=== PATIENT | male | born 1940 | race Caucasian/White ===

== ENCOUNTER 2023-08-18 16:39 | Inpatient (IN) | payer OTHER, MEDICARE ==
[~2023-08-18] VITALS: Ht 182.9 cm; Wt 75.7 kg
[~2023-08-18 16:39] MED LIST: BACTRIM DS TAB1 EACH PO; FLOMAX0.4 MG PO
[2023-08-18] MEDS ORDERED: SODIUM CHLORIDE 0.9% 1,000 ML IV ONE (19:45)
[2023-08-18] MEDS ORDERED: MORPHINE SULFATE 4 MG/ML VIAL IV ONE (19:45)
[2023-08-18] MEDS ORDERED: ondansetron HCL 4 MG/2 ML VIAL IV ONE (19:45)
[2023-08-18 20:14] LABS: HEMOGLOBIN 10.9 g/dL (12.0-18.0)
[2023-08-18 20:17] LABS: HEMATOCRIT 35.1 % (35.0-50.0); MCH 30.9 (27-36); MCV 99.8 fl (81-99); PLATELET COUNT 193 K/uL (140-440); RBC 3.52 M/ul (4.3-5.7); RDW 15.2 (10.5-15.0)
[2023-08-18 20:20] LABS: ALBUMIN 2.9 g/dL (3.4-5.0); ALBUMIN/GLOBULIN RATIO 0.83 (1.1-2.4); BILIRUBIN, TOTAL 0.4 ng/dL (0.2-1.0); CALCIUM 8.2 mg/dL (8.5-10.1); CREATININE, SERUM 19.65 mg/dL (0.70-1.30); PROTEIN, TOTAL 6.4 g/dL (6.4-8.2)
[2023-08-18 20:25] LABS: BUN/CREATININE RATIO 8.85 (6.0-28.6)
[2023-08-18 20:29] LABS: LYMPHOCYTES, MANUAL DIFF 87; MONOCYTES, MANUAL DIFF 2; NEUTROPHILS, MANUAL DIFF 11
[2023-08-18] MEDS ORDERED: DEXTROSE 50% 50 ML SYR IV ONE ×2 (20:30→23:30)
[2023-08-18] MEDS ORDERED: Calcium Gluconate in NS 1,000 MG/50 ML BAG IV ONE (20:30)
[2023-08-18] MEDS ORDERED: SODIUM POLYSTYRENE SULFONATE 15 GM/60 ML UDC PO ONE (20:30)
[2023-08-18] MEDS ORDERED: SODIUM CHLORIDE 0.9% 1,000 ML IV PRN (20:30)
[2023-08-18] MEDS ORDERED: Insulin Regular, Human 100 UNIT/ML ML IV ONE (20:30)
[2023-08-18] MEDS ORDERED: ALBUTEROL SULFATE 0.083% 3 ML VIAL INH ONE (20:30)
[2023-08-18 20:42] LABS: BILIRUBIN, URINE NEGATIVE (negative); BLOOD/HGB, URINE SMALL (Negative); KETONE, URINE NEGATIVE (Negative); LEUK ESTERASE, URINE LARGE (negative); NITRITE, URINE NEGATIVE (negative)
[2023-08-18 20:47] LABS: EPITHELIAL CELLS, URINE SQUAMOUS 1+ /lpf (0-1+)
[2023-08-18 20:48] LABS: BACTERIA, URINE 4+ /hpf (negative); CASTS, URINE NONE SEEN \\lpf; CRYSTALS, URINE NONE SEEN (0-1+); REFLEX CULTURE, URINE Yes (No); WHITE BLOOD CELLS, URINE >50 /HPF (0-5)
[2023-08-18] MEDS ORDERED: CEFTRIAXONE/SODIUM CHLORIDE 2 GM/100 ML PIGGYBACK IV ONE (22:30)
[2023-08-18 22:56] LABS: HEMOGLOBIN 10.6 g/dL (12.0-18.0); MCHC 30.7 g/dl (30-36)
[2023-08-18 22:59] LABS: HEMATOCRIT 34.4 % (35.0-50.0); MCH 30.5 (27-36); MCV 99.4 fl (81-99); PLATELET COUNT 198 K/uL (140-440); RBC 3.46 M/ul (4.3-5.7); RDW 15.1 (10.5-15.0)
[2023-08-18] MEDS ORDERED: SODIUM CHLORIDE 0.9% 1,000 ML IV SCH ×2 (23:15→23:45)
[2023-08-18 23:16] LABS: ALBUMIN 2.8 g/dL (3.4-5.0); ALBUMIN/GLOBULIN RATIO 0.85 (1.1-2.4); ANION GAP 27.7 (7-21); BILIRUBIN, TOTAL 0.4 ng/dL (0.2-1.0); BUN/CREATININE RATIO 8.63 (6.0-28.6); CALCIUM 7.9 mg/dL (8.5-10.1); CREATININE, SERUM 17.26 mg/dL (0.70-1.30); POTASSIUM 5.7 mmol/L (3.5-5.1); PROTEIN, TOTAL 6.1 g/dL (6.4-8.2)
[2023-08-18 23:19] LABS: BANDS, MANUAL DIFF 1; LYMPHOCYTES, MANUAL DIFF 90; NEUTROPHILS, MANUAL DIFF 9
[2023-08-18] MEDS ORDERED: LIDOCAINE 2% VISCOUS 6 ML SYR TOP ONE (23:45)
[2023-08-18] MEDS ORDERED: ondansetron HCL 4 MG/2 ML VIAL IV PRN (23:45)
[2023-08-18] MEDS ORDERED: ACETAMINOPHEN 325 MG TAB PO PRN (23:45)
[2023-08-19] MEDS ORDERED: dilTIAZem HCL 25 MG/5 ML VIAL IV ONE (00:15)
--- NOTE | 2023-08-19 00:30 | NUR ---
PATIENT TO THE FLOOR BY CLINICAL TRIAL HEAD. PATIENT TRANSFERRED FROM STRETCHER TO BED INDEPENDENTLY. IV FLUSHED WNL. VS OBTAINED AND RECORDED. ASSESSMENT COMPLETE. PATIENT REPORTS 4/10 ABD PAIN, PRN PAIN MEDICATION ADMINISTERED. IV FLUID INFUSING PER ORDER. WARM BLANKETS PROVIDED. ICE WATER PROVIDED. TELE IN PLACE. PATIENT DENIES FURTHER NEEDS. CALL LIGHT IN REACH.
[2023-08-19 00:46] VITALS: BP 109/57
[2023-08-19 02:15] LABS: MCHC 31.4 g/dl (30-36)
[2023-08-19 02:18] LABS: HEMATOCRIT 31.3 % (35.0-50.0); HEMOGLOBIN 9.8 g/dL (12.0-18.0); MCH 31.2 (27-36); MCV 99.2 fl (81-99); PLATELET COUNT 179 K/uL (140-440); RBC 3.16 M/ul (4.3-5.7)
[2023-08-19 02:21] LABS: ALBUMIN 2.5 g/dL (3.4-5.0); ALBUMIN/GLOBULIN RATIO 0.76 (1.1-2.4); ANION GAP 24.7 (7-21); BILIRUBIN, TOTAL 0.3 ng/dL (0.2-1.0); BUN/CREATININE RATIO 9.82 (6.0-28.6); CALCIUM 7.5 mg/dL (8.5-10.1); CREATININE, SERUM 13.54 mg/dL (0.70-1.30); POTASSIUM 5.7 mmol/L (3.5-5.1); PROTEIN, TOTAL 5.8 g/dL (6.4-8.2)
--- NOTE | 2023-08-19 02:22 | NUR ---
DEYA FROM LAB CALLED TO REPORT CRITICAL LAB VALUE, WBC OF 105.
[2023-08-19 02:24] LABS: BASOPHILS, MANUAL DIFF 1; LYMPHOCYTES, MANUAL DIFF 91; MONOCYTES, MANUAL DIFF 2; NEUTROPHILS, MANUAL DIFF 6
--- NOTE | 2023-08-19 02:57 | NUR ---
PATIENT RESTING IN BED WITH EYES CLOSED. RESPIRATIONS EVEN AND UNLABORED. CALL LIGHT IN REACH.
--- NOTE | 2023-08-19 03:42 | NUR ---
CALL LIGHT ANSWERED. PATIENT REPORTS NEEDING TO HAVE A BM. PATIENT UP TO BSC WITH SBA TO HAVE LIQUID, BROWN BM. PATIENT BACK TO BED WITH BRIEF PLACED AFTER WILLIAM CARE PROVIDED. FRESH ICE WATER PROVIDED. NEW BAG IV FLUID INFUSING PER ORDER. PATIENT HAS NO FURTHER NEEDS. CALL LIGHT IN REACH.
[2023-08-19 06:11] VITALS: BP 90/72
[2023-08-19 06:15] LABS: ALBUMIN 2.4 g/dL (3.4-5.0); ALBUMIN/GLOBULIN RATIO 0.8 (1.1-2.4); ANION GAP 20.2 (7-21); BILIRUBIN, TOTAL 0.3 ng/dL (0.2-1.0); BUN/CREATININE RATIO 11.04 (6.0-28.6); CALCIUM 7.3 mg/dL (8.5-10.1); CREATININE, SERUM 10.14 mg/dL (0.70-1.30); POTASSIUM 5.2 mmol/L (3.5-5.1); PROTEIN, TOTAL 5.4 g/dL (6.4-8.2)
--- NOTE | 2023-08-19 06:21 | NUR ---
PICKLE WATER PUMP OPERATOR ENTERED ROOM AND OBTAINED VITALS. BUSTOS BAG EMPTIED AND I&O DOCUMENTED. PT STATES NO FURTHER NEEDS AT THIS TIME. CALL LIGHT PLACED WTIHIN REACH.
--- NOTE | 2023-08-19 07:31 | NUR ---
RECIEVED SHIFT REPORT. PT IS RESTING IN BED, EYES CLOSED. BREATHING EVEN AND UNLABORED. CALL LIGHT IN REACH
[2023-08-19] MEDS ORDERED: LACTATED RINGER'S 1,000 ML IV SCH ×2 (08:00→23:15)
--- NOTE | 2023-08-19 08:04 | NUR ---
MORNING ASSESSMENT COMPLETE. PT LAYING IN BED AWAKE. DENIES PAIN OR NEEDS. TELE REMAINS IN PLACE. SWITCHED NS TO LR 200ML/HR. PT EDUCATED. CALL LIGHT IN REACH
--- NOTE | 2023-08-19 08:11 | NUR ---
PATIENT IN BED AT THIS TIME. CALL LIGHT WITHIN REACH, NO FURTHER NEEDS AT THIS TIME.
[2023-08-19] MEDS ORDERED: ondansetron HCL 4 MG/2 ML VIAL IV PRN (09:30)
[2023-08-19] MEDS ORDERED: ACETAMINOPHEN 325 MG TAB PO PRN (09:30)
[2023-08-19 09:43] VITALS: BP 115/58
--- NOTE | 2023-08-19 10:03 | NUR ---
PATIENT IN BED AT THIS TIME. VITALS AND I&O'S CHARTED. CALL LIGHT WITHIN REACH, NO FURTHER NEEDS AT THIS TIME.
[2023-08-19 10:14] LABS: ANION GAP 22.2 (7-21); BUN/CREATININE RATIO 13.11 (6.0-28.6); CALCIUM 7.4 mg/dL (8.5-10.1); CREATININE, SERUM 6.94 mg/dL (0.70-1.30); POTASSIUM 4.2 mmol/L (3.5-5.1)
--- NOTE | 2023-08-19 11:05 | NUR ---
MED REC COMPLETE
[2023-08-19] MEDS ORDERED: DEXTROSE 5% 1,000 ML IV SCH (11:30)
--- NOTE | 2023-08-19 11:34 | NUR ---
PATIENT IN BED AT THIS TIIME. CALL LIGHT WITHIN REACH, NO FURTHER NEEDS AT THIS TIME.
[2023-08-19] MEDS ORDERED: PHARMACY RENAL DOSE ADJUSTMENT 1 DOSE MISC PO SCH (12:00)
--- NOTE | 2023-08-19 12:22 | NUR ---
DID HRLY ROUNDING ON PT ASKED IF HE NEEDED ANYTHING ELSE FOR HIS LUNCH, PT WANTED ME TO HELP HIM BRING THE TABLE CLOSER AND TO SIT HIM UP. PT DIDNT NEED ANYTHING ELSE FROM ME AND CALL LIGHT IS WITHIN REACH.
--- NOTE | 2023-08-19 13:00 | NUR ---
Met with Yusuf. He states he lives in a house with 13 steps. He uses a walker and does not currently have issues getting in or out of his home. He is a and thinks he has been seen at the [facility]. He does not have pcp, but [facility]. He has recently driven, but states his family are requesting he not drive. His brother Scotty and MAT De Los Santos live in town and will drive him. Pt states his kidneys are bad, but has declined dialysis. We discussed he wishes and then completed a POSLT form. Pt request DNR/DNI with limitied treatment. He states he discussed this with Dr. Sanford earlier. Let him know I will give the form to Dr. Sanford to review with him. Called enrollment at the [facility] to check if pt is enrolled and received a recording they are not available today. Left a message with name, , and pts home phone (he does not have a cell) requesting they call and assist him with enrollment. I then called Elva Stephens MSW at the [facility]. She is unable to find this pt in the system. Pt states he had a hearing test and other testing 2 years ago. Let Elva know, this pt is in need of a pcp. Pt will need to enroll. Discussed he will need cg service and possibly Home Based Care in the future.
[2023-08-19 13:24] VITALS: BP 119/64
--- NOTE | 2023-08-19 14:09 | NUR ---
ATTEMPTED TO VISIT DURING SPIRITUAL CARE ROUNDS. PT GONE FROM ROOM. PROVIDED PRAYER.
[2023-08-19 14:21] LABS: ANION GAP 20.8 (7-21); BUN/CREATININE RATIO 14.45 (6.0-28.6); CALCIUM 7.4 mg/dL (8.5-10.1); CREATININE, SERUM 5.05 mg/dL (0.70-1.30); POTASSIUM 4.8 mmol/L (3.5-5.1)
--- NOTE | 2023-08-19 14:37 | NUR ---
REPORT RECEIVED FROM JUSTIN RN, ALL QUESTIONS ANSWERED. PT AWAKE IN BED, CALL LIGHT IN REACH.
[2023-08-19] MEDS ORDERED: HEPARIN SOD,PORK IN 0.45% NACL 500 ML IV SCH (16:15)
[2023-08-19] MEDS ORDERED: HEParin SOD (PORCINE) 5,000 UNIT/ML SYR IV PRN ×3 (16:15)
[2023-08-19] MEDS ORDERED: HEParin SOD (PORCINE) 5,000 UNIT/ML SYR IV ONE (16:15)
--- NOTE | 2023-08-19 16:21 | NUR ---
NOtified by Dr. Sanford pt has a very large DVT.
[2023-08-19 16:28] LABS: BASOPHILS 0.2 % (0-2); EOSINOPHILS 0.3 % (0-6); HEMATOCRIT 32.3 % (35.0-50.0); HEMOGLOBIN 10.1 g/dL (12.0-18.0); LYMPHOCYTES 84.4 % (24-44); MCH 30.7 (27-36); MCHC 31.3 g/dl (30-36); MONOCYTES 2.8 % (0-12); NEUTROPHILS 12.3 % (39-80); PLATELET COUNT 195 K/uL (140-440); RBC 3.29 M/ul (4.3-5.7); RDW 15.1 (10.5-15.0)
[2023-08-19 16:37] LABS: INR 1.5 (0.80-1.30); PROTIME 17.3 Sec (11.2-14.2)
[2023-08-19 18:29] VITALS: BP 116/78
--- NOTE | 2023-08-19 19:46 | NUR ---
REPORT RECIEVED FROM DAY SHIFT RN. PATIENT RESTING IN BED, DENIES CURRENT NEEDS. CALL LIGHT IN REACH.
--- NOTE | 2023-08-19 20:34 | NUR ---
iv pump alarming, new bag iv fluids hung and infusing as directed, wnl. second iv site continues to infuse heparin per protocol, site also wnl. infusing at 18 units/kg/hr-rate unchanged from start of shift. call light in reach, pt denies additional needs or concerns.
[2023-08-19 20:35] VITALS: BP 126/74
--- NOTE | 2023-08-19 20:44 | NUR ---
CENTRAL SUPPLY ASSISTANT ENTERED ROOM AND OBTAINED VITALS. BUSTOS BAG EMPTIED AND I&O DOCUMENTED. CENTRAL SUPPLY ASSISTANT REFILLED PT ICE WATER REQUESTED BY PT. PT STATES NO FURTHER NEEDS AT THIS TIME. CALL LIGHT WITHIN REACH.
[2023-08-19] MEDS ORDERED: CEFTRIAXONE/SODIUM CHLORIDE 2 GM/100 ML PIGGYBACK IV SCH (21:00)
[2023-08-19] MEDS ORDERED: NOREPINEPHRINE BITARTRATE 250 ML IV SCH (21:00)
[2023-08-19] MEDS ORDERED: MELATONIN 3 MG TAB PO PRN (21:00)
--- NOTE | 2023-08-19 21:15 | NUR ---
PATIENT RESTING IN BED. ASSESSMENT COMPLETE. RLE RED TO TOUCH, 2+ EDEMA, BUT PAINLESS. PATIENT DENIES THE NEED FOR PAIN MEDICATION AT THIS TIME. BOTH IVs FLUSH WNL. NEW BAG IV ABX INFUSING PER ORDER. PATIENT RE-EDUCATED ABOUT NOT AMBULATING AT THIS TIME. PATIENT VERBALIZES UNDESTANDING. BED ALARM ON FOR SAFETY. CATHETER CARE PROVIDED PER PROTOCOL. PATIENT HAS NO FURTHER NEEDS. CALL LIGHT IN REACH.
[2023-08-19 22:16] LABS: ANION GAP 18.9 (7-21); BUN/CREATININE RATIO 17.71 (6.0-28.6); CALCIUM 7.1 mg/dL (8.5-10.1); CREATININE, SERUM 2.71 mg/dL (0.70-1.30); POTASSIUM 4.9 mmol/L (3.5-5.1)
--- NOTE | 2023-08-19 22:39 | NUR ---
PATIENT RESTING IN BED WATCHING TV. PATIENT DENIES NEEDS AT THIS TIME AND STATES "I AM NOT GONNA GO TO BED CAUSE I WILL BE WOKE UP WITH ANOTHER PIN PRICK HERE PRETTY SOON". CALL LIGHT IN REACH.
--- NOTE | 2023-08-19 23:46 | NUR ---
NEW ORDERS PLACED BY . NEW BAG IV FLUID INFUSING PER ORDER. NO FURTHER NEEDS. CALL LIGHT IN REACH.
--- NOTE | 2023-08-19 23:57 | EKG ---
[facility] [address] [place] [address] Signed Normal sinus rhythm Left axis deviation Abnormal ECG When compared with ECG of 20-MAY-2022 16:45, premature atrial complexes are no longer present T wave amplitude has increased in Lateral leads Confirmed by Mark Wilson MD () on 08/19/2023 11:57:44 PM Electronically Signed By: MARK WILSON MD 08/19/23 2357 PATIENT NAME: DAVID WEISS Electrocardiogram DATE OF : 36 PHYSICIAN: MARK WILSON MD REPORT #: [id number] REPORT IS CONFIDENTIAL AND NOT TO BE RELEASED WITHOUT AUTHORIZATION
--- NOTE | 2023-08-19 23:59 | EKG ---
[facility] [address] [facility] [place] [address] Signed Sinus tachycardia with premature atrial complexes Left axis deviation Abnormal ECG When compared with ECG of 18-AUG-2023 21:03, premature atrial complexes are now present Confirmed by Mark Wilson MD () on 08/19/2023 11:59:19 PM Electronically Signed By: MARK WILSON MD 08/19/23 2359 PATIENT NAME: DAVID WEISS Electrocardiogram DATE OF : 36 PHYSICIAN: MARK WILSON MD REPORT #: [id number] REPORT IS CONFIDENTIAL AND NOT TO BE RELEASED WITHOUT AUTHORIZATION
[2023-08-20] VITALS (7 sets, daily range): BP systolic 96–140; BP diastolic 54–81
--- NOTE | 2023-08-20 | NUR ---
PTT RESULT 129.4, PER HEPARIN FLOW SHEET, HEPARIN INFUSION STOPPED FOR 30 MINUTES AT THIS TIME. DOUBLE VERIFIED WITH AZUL DEL CID. DOUBLE VERIFIED WITH LAB THAT PTT WAS DRAWN IN HAND OPPOSITE OF HEPARIN INFUSION SITE.
--- NOTE | 2023-08-20 00:30 | NUR ---
HEPARIN DRIP RESUMED PER HEPARIN FLOWSHEET PROTOCOL. PUMP RATE SET AT 16 UNITS/KG/HR. VERIFIED BY SECOND RN AZUL. PATIENT DENIES FURTHER NEEDS AT THIS TIME. CALL LIGHT IN REACH.
--- NOTE | 2023-08-20 01:03 | NUR ---
CONSULTING SENIOR PRACTICE DIRECTOR ENTERED ROOM AND OBTAINED VITALS AND I&O. BUSTOS BAG EMPTIED. PT STATES NO FURTHER NEEDS AT THIS TIME. CALL LIGHT WITHIN REACH.
--- NOTE | 2023-08-20 01:54 | NUR ---
ccu rn yannick called regarding hr, per tele hr very briefly up to 150, then immediately returned to baseline, now 90's. PT resting in bed, awake and watching tv, no distress noted. pt denies chest pain, sob, palpitations, ect. no needs or concerns verbalized, call light in reach. vs collected and stable, primary rn aware. will continue to monitor.
--- NOTE | 2023-08-20 01:55 | NUR ---
MANTEL CRAFTSMAN ENTERED ROOM AND OBTAINED A SET OF VITALS AT RN REQUEST. RN NOTIFED OF VITALS. PT STATES NO NEEDS AT THIS TIME. CALL LIGHT WITHIN REACH.
--- NOTE | 2023-08-20 03:54 | NUR ---
PATIENT RESTING IN BED WITH EYES CLOSED. RESPIRATIONS EVEN AND UNLABORED. CALL LIGHT IN REACH.
[2023-08-20 04:12] LABS: PLATELET COUNT 197 K/uL (140-440); RBC 3.22 M/ul (4.3-5.7)
[2023-08-20 04:16] LABS: HEMATOCRIT 31.5 % (35.0-50.0); MCH 30.9 (27-36); MCHC 31.6 g/dl (30-36); RDW 15.5 (10.5-15.0)
--- NOTE | 2023-08-20 04:21 | NUR ---
CALL RECIEVED FROM DEYA IN LAB OF WBC OF 115.6.
[2023-08-20 04:23] LABS: ANION GAP 19.1 (7-21); BUN/CREATININE RATIO 18.53 (6.0-28.6); CALCIUM 7.2 mg/dL (8.5-10.1); CREATININE, SERUM 1.78 mg/dL (0.70-1.30); LYMPHOCYTES, MANUAL DIFF 88; MAGNESIUM 1.1 mg/dL (1.8-2.4); MONOCYTES, MANUAL DIFF 1; NEUTROPHILS, MANUAL DIFF 11; PHOSPHORUS, INORGANIC 2.3 mg/dL (2.5-4.9); POTASSIUM 4.1 mmol/L (3.5-5.1)
--- NOTE | 2023-08-20 04:50 | NUR ---
PATIENT RESTING IN BED. ASSESSMENT COMPLETE. RLE 2+ EDEMA, NO REDNESS OR PAIN NOTED. PULSES PRESENT IN BLE. PATIENT REPORTS FEELING UNCOMFORTABLE, PRN PAIN MEDICATION ADMINISTERED. GENERLIZED PAIN, ABD DISCOMFORT NOTED. FRESH WATER PROVIDED. PATIENT HAS NO FURTHER NEEDS. CALL LIGHT IN REACH.
--- NOTE | 2023-08-20 04:56 | NUR ---
CALL LIGHT ANSWERED. PT REQUESTED ICE WATER. ATTENDING PSYCHIATRIST BROUGHT WATER AND OBTAINED VITALS AND I&O. BUSTOS BAG EMPTIED. PT STATES NO FURTHER NEEDS AT THIS TIME. CALL LIGHT WITHIN REACH.
--- NOTE | 2023-08-20 05:45 | NUR ---
TELEPHONE CALL PLACED TO REGARDING [address] [facility] LAB RESULTS. NEW ORDER PLACED. ORDER VERIFIED USING REPEAT BACK METHOD.
[2023-08-20] MEDS ORDERED: MAGNESIUM SULFATE 4 GM/100 ML BAG IV ONE (06:00)
--- NOTE | 2023-08-20 06:22 | NUR ---
PATIENT RESTING IN BED. NEW BAG IV MEDICATION INFUSING PER ORDER, SEE MAR. PATIENT HAS NO FURTHER NEEDS. CALL LIGHT IN REACH.
--- NOTE | 2023-08-20 06:54 | NUR ---
PTT RESULT OF 68.8 WITHIN THERAPUTIC RANGE FOR HEPARIN FLOW SHEET. NO CHANGE TO DOSE. REMAINS AT 16 UNITS/KG/HOUR. NEXT PTT ORDERED FOR 1300.
--- NOTE | 2023-08-20 07:46 | NUR ---
Patient awake, alert and oriented x4. Patient denies pain at this time. Heparin drip infusing at 16units/kg/hr. Right leg has generalized swelling, pulse intact, pt denies pain. Iv site is patent at this time. Patient denies needs, bed alarm intact.
--- NOTE | 2023-08-20 08:21 | NUR ---
UR CLINICAL REVIEW: NEGRA MARIO INPT 08/18/23 @ 2344 MATCHES STATUS MEETS INPT CRITERIA CLINICALS SENT FOR AUTH PLAN FOR SNF AT [facility] NEXT REVIEW 08/23/23
[2023-08-20 10:24] LABS: ANION GAP 16.9 (7-21); BUN/CREATININE RATIO 16.32 (6.0-28.6); CALCIUM 7.2 mg/dL (8.5-10.1); CREATININE, SERUM 1.47 mg/dL (0.70-1.30); POTASSIUM 3.9 mmol/L (3.5-5.1)
--- NOTE | 2023-08-20 11:23 | NUR ---
med rec complete.
--- NOTE | 2023-08-20 12:45 | NUR ---
hourly rounding-Pt awake in bed watching tv, a&ox4. Patient denies pain. Patient denies needs at this time, call light within reach.
[2023-08-20] MEDS ORDERED: POTASSIUM PHOSPHATE 20 MMOL in DEXTROSE 5% 500 ML IV ONE (13:30)
--- NOTE | 2023-08-20 17:05 | NUR ---
Patient awake in bed, alert and oriented x4. Heparin infusing at 16units/kg/hr-unchanged. Patient denies pain at this time. Fresh water provided to patient. Patient denies needs, personal supplies and call light within reach.
--- NOTE | 2023-08-20 19:28 | NUR ---
REPORT RECIEVED FROM DAY SHIFT RN. PATIENT RESTING IN BED WITH VISITORS IN THE ROOM. PATIENT HAS NO CURRENT NEEDS. HEPARIN DRIP INFUSING AT 16 UNITS/KG/HR. DOUBLE VERIFIED BY SECOND RN MAGNUS. CALL LIGHT IN REACH.
[2023-08-20 20:12] LABS: ANION GAP 15.6 (7-21); BUN/CREATININE RATIO 15.17 (6.0-28.6); CALCIUM 7.3 mg/dL (8.5-10.1); CREATININE, SERUM 1.12 mg/dL (0.70-1.30); POTASSIUM 4.6 mmol/L (3.5-5.1)
--- NOTE | 2023-08-20 20:30 | NUR ---
PATIENT RESTING IN BED. NEW BAG IV ABX INFUSING PER ORDER. NEW BAG IV FLUID INFSUING PER ORDER. BOTH IVs FLUSH WNL. FRESH ICE PROVIDED. PATIENT HAS NO FURTHER NEEDS. CALL LIGHT IN REACH.
--- NOTE | 2023-08-20 20:42 | NUR ---
ENVIRONMENTAL SERVICES COORDINATOR ENTERED ROOM AND OBTAINED VITALS AND I&O. BUSTOS BAG EMTPIED AND DINNER TRAY REMOVED FROM ROOM AND PT REQUEST. PT STATES NO FURTHER NEEDS AT THIS TIME. CALL LIGHT WITHIN REACH.
--- NOTE | 2023-08-20 21:31 | NUR ---
CATHETER CARE PROVIDED PER PROTOCOL. WILLIAM AREA RED, BUT PATIENT DENIES PAIN. BARRIER CREAM APPLIED. ASSESSMENT COMPLETE. PATIENT RLE HAS 1+ EDEMA WITH STRONG PULSE PRESENT. PATIENT DENIES PAIN. PATIENT HAS NO FURTHER NEEDS AT THIS TIME. CALL LIGHT IN REACH. BED ALARM ON FOR SAFETY.
--- NOTE | 2023-08-20 23:17 | NUR ---
PATIENT RESTING IN BED WITH EYES CLOSED. RESPIRATIONS EVEN AND UNLABORED. CALL LIGHT IN REACH.
[2023-08-21] VITALS (7 sets, daily range): BP systolic 100–140; BP diastolic 50–98
--- NOTE | 2023-08-21 00:39 | NUR ---
PATIENT RESTING IN BED WITH EYES CLOSED. RESPIRATIONS EVEN AND UNLABORED. CALL LIGHT IN REACH.
--- NOTE | 2023-08-21 01:59 | NUR ---
PATIENT RESTING IN BED WITH EYES CLOSED. AWAKENS EASILY. VS AND I&Os OBTAINED AND RECORDED. PATIENT DENIES NEEDS AT THIS TIME. CALL LIGHT IN REACH.
--- NOTE | 2023-08-21 03:45 | NUR ---
CALL LIGHT ANSWERED. PATIENT REQUESTING ICE. FRESH ICE PROVIDED. PATIENT HAS NO FURTHER NEEDS. CALL LIGHT IN REACH.
--- NOTE | 2023-08-21 04:56 | NUR ---
CALL LIGHT ANSWERED. IV PUMP ALARMING. VS AND I&Os OBTAINED AND RECORDED. NEW BAG IV FLUID INFUSING PER ORDER. ASSESSMENT COMPLETE. PATIENT DENIES PAIN. PULSES PRESENT IN BLE. 1+ EDEMA IN RLE. PATIENT STATES "I THINK IT IS LOOKING BETTER". FRESH WATER PROVIDED. PATIENT HAS NO FURTHER NEEDS. CALL LIGHT IN REACH.
[2023-08-21 05:28] LABS: HEMOGLOBIN 10.4 g/dL (12.0-18.0)
[2023-08-21 05:33] LABS: HEMATOCRIT 32.9 % (35.0-50.0); MCH 31.2 (27-36); MCHC 31.6 g/dl (30-36); MCV 98.6 fl (81-99); PLATELET COUNT 241 K/uL (140-440); RBC 3.34 M/ul (4.3-5.7); RDW 15.7 (10.5-15.0)
[2023-08-21 05:47] LABS: ALBUMIN 2.4 g/dL (3.4-5.0); ALBUMIN/GLOBULIN RATIO 0.73 (1.1-2.4); ANION GAP 16.4 (7-21); BILIRUBIN, TOTAL 0.4 ng/dL (0.2-1.0); BUN/CREATININE RATIO 13.51 (6.0-28.6); CALCIUM 7.2 mg/dL (8.5-10.1); CREATININE, SERUM 1.11 mg/dL (0.70-1.30); MAGNESIUM 1.5 mg/dL (1.8-2.4); PHOSPHORUS, INORGANIC 2.1 mg/dL (2.5-4.9); POTASSIUM 3.4 mmol/L (3.5-5.1); PROTEIN, TOTAL 5.7 g/dL (6.4-8.2)
[2023-08-21 05:54] LABS: LYMPHOCYTES, MANUAL DIFF 84; MONOCYTES, MANUAL DIFF 5; NEUTROPHILS, MANUAL DIFF 11
--- NOTE | 2023-08-21 06:20 | NUR ---
PTT LAB RESULT RECIEVED. PER HEPARIN PROTOCOL, 3,785 U BOLUS ADMINSITERED. DOUBLE VERIFIED BY SECOND NEHEMIAS Mckeon PER HEPARIN PROTOCOL CONTINUOUS HEPARIN INFUSION INCREASED 2 UNITS/KG/HR. HEPARING DRIP RATE NOW INFUSING 18 UNITS/KG/HOUR AND DOUBLE VERIFIED BY SECOND RN SOREN Mckeon 1230 PTT LAB ORDER PLACED PER PROTOCOL.
--- NOTE | 2023-08-21 07:15 | NUR ---
REPORT RECEIVED FROM ZAC DEL CID, ALL QUESTIONS ANSWERED. PT RESTING IN BED WITH EYES CLOSED, RESPIRATIONS EVEN AND UNLABORED. HEPARIN DRIP VERIFIED WITH ZAC DEL CID. CALL LIGHT IN REACH. BED ALARM ON.
[2023-08-21] MEDS ORDERED: MAGNESIUM SULFATE 4 GM/100 ML BAG IV ONE (07:45)
[2023-08-21] MEDS ORDERED: POTASSIUM PHOSPHATE 30 MMOL in DEXTROSE 5% 500 ML IV ONE (07:45)
--- NOTE | 2023-08-21 09:49 | NUR ---
CALL FROM CCU PT HEART RATE ELEVATED. PT WORKING WITH PHYSICAL THERAPY IN THERAPY ROOM, PT HEART RATE 134, PT BACK TO ROOM AND IN RECLINER, EKG ORDERED BY DR WILSON.
[2023-08-21] MEDS ORDERED: MAGNESIUM SULFATE 100 ML IV ONE (10:07)
--- NOTE | 2023-08-21 10:24 | NUR ---
ASSESSMENT COMPLETE. PT SITTING UP IN CHAIR, DENIES CHEST PAIN OR SOB, STATES WHEN HEART RATE WAS ELEVATED FELT LIGHT HEADED. DENIES AT THIS TIME. CLEAR LUNG SOUNDS. RLE 1+ EDEMA, DENIES PAIN AT THIS TIME. PT DENIES FURTHER NEEDS AT THIS TIME. CALL LIGHT IN REACH.
[2023-08-21] MEDS ORDERED: ENOXAPARIN SODIUM 80 MG/0.8 ML SYR SUB-Q SCH (10:35)
--- NOTE | 2023-08-21 12:25 | EKG ---
[facility] [address] [place] [address] Signed Sinus rhythm with premature supraventricular complexes Otherwise normal ECG When compared with ECG of 19-AUG-2023 00:10, No significant change was found with sinus arrhythmia Confirmed by Mark Wilson MD () on 08/21/2023 12:25:42 PM Electronically Signed By: MARK WILSON MD 08/21/23 1225 PATIENT NAME: DAVID WEISS Electrocardiogram DATE OF : 36 PHYSICIAN: MARK WILSON MD REPORT #: [id number] REPORT IS CONFIDENTIAL AND NOT TO BE RELEASED WITHOUT AUTHORIZATION
--- NOTE | 2023-08-21 12:32 | NUR ---
PT AWAKE IN CHAIR. DENIES NEEDS AT THIS TIME. CALL LIGHT IN REACH.
--- NOTE | 2023-08-21 13:04 | EKG ---
[facility] [address] [facility] [place] [address] Signed Sinus rhythm with premature supraventricular complexes and with occasional premature ventricular complexes Left axis deviation Abnormal ECG When compared with ECG of 19-AUG-2023 14:12, premature ventricular complexes are now present T wave amplitude has decreased in Lateral leads Confirmed by Mark Wilson MD () on 08/21/2023 1:04:09 PM Electronically Signed By: MARK WILSON MD 08/21/23 1304 PATIENT NAME: DAVID WEISS Electrocardiogram DATE OF : 36 PHYSICIAN: MARK WILSON MD REPORT #: [id number] REPORT IS CONFIDENTIAL AND NOT TO BE RELEASED WITHOUT AUTHORIZATION
--- NOTE | 2023-08-21 13:08 | NUR ---
PT RESTING COMFORTABLY IN CHAIR WITH CALL LIGHT WITHIN REACH.
--- NOTE | 2023-08-21 19:04 | NUR ---
CHARTING COMPLETED BY STUDENT NURSE TIFFANIE REVIEWED BY THIS RN.
--- NOTE | 2023-08-21 19:20 | NUR ---
REPORT RECEIVED FROM OFFGOING STUDENT RN, TIFFANIE. PT SITTING UP IN CHAIR WITH CHAIR ALARM ACTIVE. PT DENIES NEEDS. DINNER TRAY REMOVED FROM ROOM. CALL LIGHT IN REACH. ROOM IN VIEW OF RN STATION.
--- NOTE | 2023-08-21 21:50 | NUR ---
PT ASSESSMENT COMPLETE. PT SITTING UP IN CHAIR. STATES THAT HE IS READY TO GO TO BED. PT TO BED WITH 1PA, TOLERATED WELL. BED ALARM IN PLACE. PT DENIES PAIN, NAUSEA, OR SOB. TELE # 7, IRREGULAR HR, 70'S. BUSTOS CATH DRAINING CLEAR YELLOW URINE. VS OBTAINED. WNL. IV FLUSHED WITH 10 ML NS X 2. PATENT, WNL. PT DENIES FURTHER NEEDS AT THIS TIME. CALL LIGHT IN REACH.
--- NOTE | 2023-08-21 22:40 | NUR ---
SANITATION TRUCK CLEANER TO ROOM FOR IV PUMP ALARMING. PT RESTING IN BED WATCHING TV. DENIES NEEDS AT THIS TIME. BED ALARM ACTIVE. CALL LIGHT IN REACH. ROOM IN VIEW OF RN STATION WITH CURTAIN OPEN.
[2023-08-22] VITALS (7 sets, daily range): BP systolic 79–128; BP diastolic 58–83
--- NOTE | 2023-08-22 03:00 | NUR ---
PT ASSESSMENT COMPLETE. PT RESTING IN BED WITH EYES CLOSED, WAKES EASILY TO VOICE AND TOUCH. PT DENIES NAUSEA OR SOB. PT REPORTS SLIGHT ABD TENDERNESS TO PALPATION. RLE WITH 1+ EDEMA, PT DENIES TENDERNESS, CMS INTACT. BUSTOS CATH DRAINING CLEAR YELLOW URINE. VS OBTAINED, WNL. IVF INFUSING ORDERED. PT DENIES FURTHER NEEDS AT THIS TIME. CALL LIGHT IN REACH. BED ALARM ACTIVE. ROOM IN VIEW OF RN STATION.
--- NOTE | 2023-08-22 06:00 | NUR ---
UTILITY ARBORIST TO ROOM FOR AM VITALS. PT RESTING WITH EYES CLOSED. WAKES EASILY. VS OBTAINED. BUSTOS CATH EMPTIED. FRESH ICE CHIPS PROVIDED. PT DENIES FURTHER NEEDS. CALL LIGHT IN REACH. BED ALARM ACTIVE.
--- NOTE | 2023-08-22 07:12 | NUR ---
EKG COMPLETED PER ORDER.
[2023-08-22] MEDS ORDERED: METOPROLOL TARTRATE 5 MG/5 ML VIAL IV ONE (07:15)
--- NOTE | 2023-08-22 08:31 | NUR ---
PATIENT GIVEN SQ LOVENOX. PO METOPROLOL DOSE GIVEN IS 12.5MG. ONE LITER LR BOLUS NOW.
[2023-08-22] MEDS ORDERED: LACTATED RINGER'S 1,000 ML IV ONE ×2 (08:45→14:30)
[2023-08-22] MEDS ORDERED: METOPROLOL TARTRATE 25 MG TAB PO SCH ×2 (09:00)
[2023-08-22 09:35] LABS: MCH 30.7 (27-36)
[2023-08-22 09:38] LABS: HEMATOCRIT 32.4 % (35.0-50.0); MCHC 30.8 g/dl (30-36); MCV 99.7 fl (81-99); PLATELET COUNT 300 K/uL (140-440); RBC 3.25 M/ul (4.3-5.7); RDW 15.7 (10.5-15.0)
[2023-08-22 09:42] LABS: INR 1.26 (0.80-1.30)
[2023-08-22 09:43] LABS: ANION GAP 15.6 (7-21); BUN/CREATININE RATIO 11.53 (6.0-28.6); CALCIUM 7.1 mg/dL (8.5-10.1); CREATININE, SERUM 1.04 mg/dL (0.70-1.30); MAGNESIUM 1.6 mg/dL (1.8-2.4); POTASSIUM 3.6 mmol/L (3.5-5.1)
--- NOTE | 2023-08-22 09:50 | NUR ---
MORNING ASSESSMENT IS COMPLETE. PATIENT 1L LR BOLUS COMPLETE. VITALS/I&O COMPLETE. PATIENT IS RESTING IN BED, DENIES PAIN OR NAUSEA. PATIENT HAS GOOD APPETITE WITH BREAKFAST. METOPROLOL 12.5MG BID STARTED AT 0900 THIS AM AND PULSE REMAINS IN THE 70'S AFTER BOLUS. PATIENT WILL HAVE PHISICAL THERAPY THIS MORNING AND OROSTATIC VITALS WITH THIS. NO OTHER NEEDS AT THIS TIME.
[2023-08-22 10:11] LABS: NEUTROPHILS, MANUAL DIFF 13
[2023-08-22 10:13] LABS: LYMPHOCYTES, MANUAL DIFF 83; MONOCYTES, MANUAL DIFF 4
--- NOTE | 2023-08-22 11:03 | NUR ---
ORTHOSTATIC VITALS DONE BEFORE WORKING WITH PHYSICAL THERAPY, PATIENT HAD SIGNIFICANT JUMP OF BP WITH STANDING, DENIED DIZZINESS, AMBULATED TO PHYSICAL THERAPY ROOM WITH SBA AND FWW. PATIENT WAS ABLE TO DO STAIRS. LINENS CHANGED, PATIENT IS UP TO CHAIR.
[2023-08-22] MEDS ORDERED: MAGNESIUM SULFATE 4 GM/100 ML BAG IV ONE (12:30)
[2023-08-22] MEDS ORDERED: TAMSULOSIN HCL 0.4 MG CAP PO SCH (12:36)
--- NOTE | 2023-08-22 12:49 | NUR ---
PATIENT HAS MG RIDER INFUSING. PATIENT IS HAVING A REPEAT EKG AFTER CONVERTING TO NSR. PATIENT MOVED BACK TO BED WITH 1PA AND FWW FOR AFTERNOON NAP.
--- NOTE | 2023-08-22 14:13 | NUR ---
PATIENT IS SLEEPING IN BED, REGULAR RESPIRATIONS.
--- NOTE | 2023-08-22 14:22 | NUR ---
PATIENT'S BP IN THE 80'S SYSTOLIC. RE-CYCLED FOR [address] NOTIFIED BY NEHEMIAS MARTIN AND FLUID BOLUS ORDERED.
--- NOTE | 2023-08-22 16:06 | NUR ---
PATIENT IS FINISHED WITH SECOND LR BOLUS. PATIENT UP WITH MINIMAL ASSIST AND FWW TO BATHROOM. PATIENT DENIES DIZZINESS.
--- NOTE | 2023-08-22 17:44 | NUR ---
PATIENT ATE 80% OF DINNER. I&O COMPLETE, VITALS DONE.
--- NOTE | 2023-08-22 20:42 | NUR ---
PT ASSESSMENT COMPLETE. PT RESTING IN BED WATCHING TV. PT DENIES PAIN, NAUSEA, OR SOB. PT STATES THAT ABD TENDERNESS IMPROVED AFTER HAVING A BOWEL MOVEMENT EARLIER IN THE DAY. TELE # [address], SR, HR IN 70'S. BUSTOS CATH DRAINING CLEAR YELLOW URINE. RLE WITH 1 + EDEMA. PT DENIES TENDERNESS. CMS INTACT. IV X 2 FLUSHED WITH 5 ML NS. WNL, PATENT. VS OBTAINED. WNL. PT DENIES FURTHER NEEDS AT THIS TIME. CALL LIGHT IN REACH. BED ALARM ACTIVE.
[2023-08-22] MEDS ORDERED: APIXABAN 5 MG TAB PO SCH (21:00)
--- NOTE | 2023-08-22 22:18 | NUR ---
PT ROUNDING. PT RESTING IN BED WITH EYES CLOSED. RESPIRATIONS EVEN AND UNLABORED. CALL LIGHT IN REACH. BED ALARM ACTIVE.
--- NOTE | 2023-08-23 01:13 | NUR ---
PT ROUNDING. PT RESTING IN BED WITH EYES CLOSED. RESPIRATIONS EVEN AND UNLABORED. CALL LIGHT IN REACH. BED ALARM ACTIVE.
[2023-08-23 02:33] VITALS: BP 104/66
--- NOTE | 2023-08-23 02:34 | NUR ---
RESTING, EYES CLOSED, NO C/O DISTRESS, IVF INFUSING RA. F/C PATENT. TELE#[address] SR WITH FREQUENT SVPB'S, DENIES CP. COOPERATIVE WITH VITALS AND SECOND ASSESSMENT
[2023-08-23 02:36] VITALS: BP 104/66
--- NOTE | 2023-08-23 04:30 | NUR ---
REPORT RECEIVED FROM ANDRIY DEL CID. PT RESTING IN BED, EYES CLOSED. RR EVEN, UNLABORED. CALL LIGHT IN REACH.
[2023-08-23 05:09] VITALS: BP 107/57
--- NOTE | 2023-08-23 05:14 | NUR ---
IV PUMP ALARMING, NEW BAG OF IV FLUIDS PROVIDED. VS AND I & O COMPLETED. IV WNL, CDI. AKASH WNL. PT STATES NO OTHER NEEDS AT THIS TIME. CALL LIGHT IN REACH.
--- NOTE | 2023-08-23 06:30 | NUR ---
PT RESTING IN BED, EYES CLOSED. RR EVEN, UNLABORED. CALL LIGHT IN REACH.
--- NOTE | 2023-08-23 07:00 | NUR ---
REPORT REVCEIVED FROM DRY LUMBER GRADER NEHEMIAS DOTY. PATIENT IS LYING ON THEIR LEFT SIDE WITH EYES CLOSED AND RESPIRATIONS ARE EVEN AND UNLABORED. CALL LIGHT AND PERSONAL BELONGINGS ARE WITHIN REACH.
[2023-08-23 09:00] VITALS: BP 92/58
[2023-08-23] MEDS ORDERED: CIPROFLOXACIN 500 MG TAB PO SCH (09:00)
--- NOTE | 2023-08-23 09:53 | NUR ---
Spoke with patient about SNF vs. Home Health. OT provider also in room at this time. Patient refuses SNF. Discussed home health with patient in depth with OT. Patietn refuses home health. States "I'd like to try it on my own." States this 2-3 times while talking to him. Magnolia, primary nurse, notified of patient's decision.
--- NOTE | 2023-08-23 09:53 | NUR ---
0900 MEDICATIONS ADMINISTERED PER THE EMAR. RN NOTIFIED OF THE PATIENT ORTHOSTATIC BLOOD PRESSURES. STATED TO RESUME METOPROLOL DOSE. FULL ASSESSMENT COMPLETE AND DOCUMENTED IN THE CHART. PATIENT IS ALERT AND ORIENTED TIMES FOUR. LUNG SOUNDS ARE CLEAR IN ALL LUNG PAIGE BILATERALLY AND THEY ARE ON ROOM AIR. CARDIAC WITH IRREGULAR HEART TONES ON AUSCULTATION. PATIENT IS ON TELEMETRY NUMBER 7 WITH IRREGULAR HR. HR IS 83. RADIAL PULSES ARE STRONG BILATERALLY. SENSATION INTACT AND PATIENT WITH NO COMPLAINTS OF NUMBNESS AND TINGLING. PATIENT WITH NO COMPLAINTS OF PAIN. BOWEL TONES ARE ACTIVE IN ALL FOUR QUADRANTS. PATIENT IS ON A REGULAR DIET AND THEIR LAST BOWEL MOVEMENT WAS 08/22/2023. SCABS NOTED ON THE BILATERAL LOWER EXTREMITIES. PATIENT WITH A BUSTOS CATHETER CLAMPED TO SEE IF PATIENT DEVELOPS THE URGE TO VOID. IV SITES ARE CLEAN, DRY, AND INTACT. IV SITES FLUSHED WITH 10 ML NORMAL SALINE. PATIENT STATED NO FURTHER NEEDS AT THIS TIME. CALL LIGHT AND PERSONAL BELONGINGS ARE WITHIN REACH.
--- NOTE | 2023-08-23 10:55 | NUR ---
THE PATIENTS FAMILY MEMBER, KYLE, GIVEN AN UPDATE BY RN. PATIENT STATED IT WAS OKAY TO GIVE THE FAMILY MEMBER AN UPDATE PRIOR TO CALLING.
--- NOTE | 2023-08-23 11:07 | NUR ---
PATIENT AMBULATED BACK TO BED WITH RN SBA. PATIENT HOOKED BACK UP TO [facility]. PATIENT IS ON 5L NC AND IS 89-91%. PATIENT MOM IS SITTING IN THE CHAIR AT BEDSIDE. PATIENT HAD ONE UNMEASURED VOID AND BOWEL MOVEMENT. PATIENT STATED NO FURTHER NEEDS AT THIS TIME. CALL LIGHT AND PERSONAL BELONGINGS ARE WITHIN REACH.
--- NOTE | 2023-08-23 12:37 | NUR ---
BLADDER SCAN COMPLETE AND WITH 483 ML. LUNCH TRAY REMOVED FROM THE PATIENTS ROOM AT THIS TIME. BUSTOS CATHETER UNCLAMPED. NOTIFIED.
[2023-08-23] MEDS ORDERED: TAMSULOSIN HCL0.4 MG PO (13:15)
[2023-08-23] MEDS ORDERED: CIPROFLOXACIN500 MG PO (13:15)
[2023-08-23] MEDS ORDERED: ELIQUIS5 M1 PO (13:17)
[2023-08-23] MEDS ORDERED: METOPROLOL TART25 MG PO (13:18)
--- NOTE | 2023-08-23 13:30 | NUR ---
UR CONCURRENT REVIW: REVIEW COMPLETED. DVT GUIDELINE ADDED PATIENT MEETS CRITERIA. PLAN TO DC TO HOME TODAY.
[2023-08-23 13:31] VITALS: BP 110/55
--- NOTE | 2023-08-23 13:31 | NUR ---
WILLIAM CARE AND BUSTOS CARE COMPLETE. PATIENT EDUCATED ON HOW TO CARE FOR THE CATHETER AT HOME. PATIENT EXPRESSED UNDERSTANDING. VITAL SIGNS TAKEN AND DOCUMENTED IN THE CHART. BOTH IV SITES REMOVED. IV CATHETER TIPS INTACT. CARDIAC WITH PATIENT ON TELEMETRY NUMBER 7. PATIENT IS IN SINUS RHYTHM WITH A HR OF 69. INTAKE AND OUTPUT VALUES TAKEN AND DOCUMENTED IN THE CHART. PATIENT STATED NO FURTHER NEEDS AT THIS TIME. CALL LIGHT AND PERSONAL BELONGINGS ARE WITHIN REACH.
--- NOTE | 2023-08-23 13:48 | NUR ---
Discussed home health with patient once again. Informed him since he is going home with a catheter, having someone follow-up with him would be beneficial. Also discussed PT and OT. Still believes his family can help, informed him referral will be sent and he can discuss with home health if he does not want them to come to his home. Placed on waitlist [facility]CP [facility] to [place] [facility].
--- NOTE | 2023-08-23 14:03 | NUR ---
DISCHARGE INSTRUCTIONS AND EDUCATION ON AKU, URINARY RETENTION, BUSTOS CATHETER CARE, AND HYPERKALEMIA REVIEWED WITH THE PATIENT AND HIS FAMILY MEMBER. PATIENT AND FAMILY EXPRESSED UNDERSTANDING. PATIENT SIGNED THE DISCHARGE PAPER. PATIENT FAMILY STATED SHE WOULD COME BACK AROUND 1530 TO TAKE THE PATIENT HOME. PATIENT STATED NO FURTHER NEEDS AT THIS TIME. CALL LIGHT AND PERSONAL BELONGINGS ARE WITHIN REACH.
[2023-08-23 15:19] VITALS: BP 101/67
--- NOTE | 2023-08-25 18:23 | EKG ---
[facility] [address] [facility] [place], [place] [address] Signed Atrial fibrillation with rapid ventricular response Abnormal ECG When compared with ECG of 22-AUG-2023 07:00, (Unconfirmed) No significant change was found Confirmed by Esvin Abreu MD ([id number]) on 08/25/2023 6:23:45 PM Electronically Signed By: ESVIN ABREU 08/25/23 1823 PATIENT NAME: DAVID WEISS Electrocardiogram DATE OF : 36 PHYSICIAN: ESVIN ABREU REPORT #: [id number] REPORT IS CONFIDENTIAL AND NOT TO BE RELEASED WITHOUT AUTHORIZATION
--- NOTE | 2023-08-25 18:27 | EKG ---
[facility] [address] [facility] [place] [address] Signed Normal sinus rhythm Left axis deviation Abnormal ECG When compared with ECG of 22-AUG-2023 07:00, (Unconfirmed) Sinus rhythm has replaced Atrial fibrillation Vent. rate has decreased BY 42 BPM Confirmed by Esvin Abreu MD ([id number]) on 08/25/2023 6:27:48 PM Electronically Signed By: ESVIN ABREU 08/25/23 1827 PATIENT NAME: DAVID WEISS Electrocardiogram DATE OF : 36 PHYSICIAN: ESVIN ABREU REPORT #: [id number] REPORT IS CONFIDENTIAL AND NOT TO BE RELEASED WITHOUT AUTHORIZATION
== END 2023-08-23 15:30 | disposition home or self-care (01) | DRG 683 ==
LOC: ED 16:39 → MS 23:46
PROVIDERS: Family Medicine; Internal Medicine; ADMIT Family Medicine; ATTEND Family Medicine
PROC: 0T9B70Z Drainage of Bladder with Drainage Device, Via Natural or Artificial Opening (ICD-10-PCS; principal; 2023-08-18)
DX: N17.9 Acute kidney failure, unspecified (principal); C91.10 Chronic lymphocytic leukemia of B-cell type not having achieved remission; I82.401 Acute embolism and thrombosis of unspecified deep veins of right lower extremity; N13.8 Other obstructive and reflux uropathy; E87.0 Hyperosmolality and hypernatremia; N39.0 Urinary tract infection, site not specified; E87.1 Hypo-osmolality and hyponatremia; Z66 Do not resuscitate; E87.5 Hyperkalemia; E86.0 Dehydration; F10.90 Alcohol use, unspecified, uncomplicated; N13.30 Unspecified hydronephrosis; E83.42 Hypomagnesemia; E83.39 Other disorders of phosphorus metabolism; I48.91 Unspecified atrial fibrillation; N40.1 Benign prostatic hyperplasia with lower urinary tract symptoms; R33.8 Other retention of urine; Z60.2 Problems related to living alone; Z90.89 Acquired absence of other organs
CPT/HCPCS: 36415; 74176; 80048; 80053; 81001; 83690; 83735; 84100; 85025; 85610; 85730; 87077; 87088; 87186; 93005; 93010; 93971; 94640; 97116; 97161; 97166; 97530; A9270; J0696; J1644; J1650; J1815; J2270; J2405; J3475; J7030; J7060; J7070; J7121

== ENCOUNTER 2023-10-20 16:33 | Inpatient (IN) | payer MEDICARE ==
[~2023-10-20] VITALS: Ht 182.9 cm; Wt 68.7 kg
[~2023-10-20 16:33] MED LIST changes: +CIPROFLOXACIN500 MG PO; +ELIQUIS5 M1 PO; +METOPROLOL TART25 MG PO; +TAMSULOSIN HCL0.4 MG PO
[2023-10-20] MEDS ORDERED: SODIUM CHLORIDE 0.9% 500 ML IV ONE (18:15)
[2023-10-20 18:18] LABS: HEMATOCRIT 26.7 % (35.0-50.0); HEMOGLOBIN 8.4 g/dL (12.0-18.0); MCHC 31.3 g/dl (30-36); MCV 98.9 fl (81-99); PLATELET COUNT 311 K/uL (140-440); RDW 17.8 (10.5-15.0)
[2023-10-20 18:24] LABS: ALBUMIN 3.2 g/dL (3.4-5.0); ALBUMIN/GLOBULIN RATIO 0.89 (1.1-2.4); ANION GAP 19.4 (7-21); BILIRUBIN, TOTAL 0.4 ng/dL (0.2-1.0); BUN/CREATININE RATIO 14.32 (6.0-28.6); CALCIUM 8.8 mg/dL (8.5-10.1); CREATININE, SERUM 7.4 mg/dL (0.70-1.30); POTASSIUM 6.4 mmol/L (3.5-5.1); PROTEIN, TOTAL 6.8 g/dL (6.4-8.2)
[2023-10-20 18:36] LABS: BANDS, MANUAL DIFF 1; EOSINOPHILS, MANUAL DIFF 1; LYMPHOCYTES, MANUAL DIFF 78; MONOCYTES, MANUAL DIFF 1; NEUTROPHILS, MANUAL DIFF 19
[2023-10-20] MEDS ORDERED: SODIUM CHLORIDE 0.9% 1,000 ML IV ONE (19:30)
[2023-10-20] MEDS ORDERED: ACETAMINOPHEN 325 MG TAB PO PRN (20:45)
[2023-10-20] MEDS ORDERED: LACTATED RINGER'S 1,000 ML IV SCH (20:45)
[2023-10-20] MEDS ORDERED: ondansetron HCL 4 MG/2 ML VIAL IV PRN (20:45)
[2023-10-20] MEDS ORDERED: Calcium Gluconate in NS 1,000 MG/50 ML BAG IV ONE (21:00)
[2023-10-20] MEDS ORDERED: SODIUM POLYSTYRENE SULFONATE 15 GM/60 ML UDC PO ONE (21:00)
[2023-10-20 21:23] LABS: ANION GAP 18.9 (7-21); BUN/CREATININE RATIO 15.94 (6.0-28.6); CALCIUM 8.8 mg/dL (8.5-10.1); CREATININE, SERUM 6.71 mg/dL (0.70-1.30); POTASSIUM 5.9 mmol/L (3.5-5.1)
[2023-10-20 21:39] VITALS: BP 153/77
[2023-10-20 22:00] VITALS: BP 164/85
--- NOTE | 2023-10-20 22:36 | EKG ---
[facility] [address] [facility] [place] [address] Signed Sinus rhythm with premature supraventricular complexes Otherwise normal ECG When compared with ECG of 22-AUG-2023 12:47, premature supraventricular complexes are now present T wave amplitude has increased in Anterior leads Confirmed by Mark Wilson MD () on 10/20/2023 10:36:37 PM Electronically Signed By: MARK WILSON MD 10/20/23 2236 PATIENT NAME: ISELADAVID Electrocardiogram DATE OF : 36 PHYSICIAN: MARK WILSON MD REPORT #: [id number] REPORT IS CONFIDENTIAL AND NOT TO BE RELEASED WITHOUT AUTHORIZATION
[2023-10-20 23:05] VITALS: BP 176/89
[2023-10-20] MEDS ORDERED: hydrALAZINE HCL 20 MG/ML VIAL IV PRN (23:15)
[2023-10-21] VITALS (18 sets, daily range): BP systolic 108–142; BP diastolic 55–91
[2023-10-21 01:26] LABS: ANION GAP 20.9 (7-21); BUN/CREATININE RATIO 16.75 (6.0-28.6); CALCIUM 8.7 mg/dL (8.5-10.1); CREATININE, SERUM 5.79 mg/dL (0.70-1.30); POTASSIUM 5.9 mmol/L (3.5-5.1)
[2023-10-21] MEDS ORDERED: DEXTROSE 5% 1,000 ML IV PRN (01:45)
[2023-10-21] MEDS ORDERED: DEXTROSE 50% 50 ML SYR IV PRN ×2 (01:45)
[2023-10-21] MEDS ORDERED: Insulin Regular, Human 100 UNIT/ML ML SUB-Q ONE (01:45)
[2023-10-21] MEDS ORDERED: DEXTROSE 50% 50 ML SYR IV ONE (01:45)
[2023-10-21] MEDS ORDERED: GLUCAGON,HUMAN RECOMBINANT 1 MG/ML VIAL SUB-Q PRN (01:45)
[2023-10-21] MEDS ORDERED: Calcium Gluconate in NS 1,000 MG/50 ML BAG IV ONE (01:45)
[2023-10-21] MEDS ORDERED: IBLOOD GLUCOSE TEST STRIP 1 EA TEST XX PRN (01:45)
[2023-10-21 05:26] LABS: HEMATOCRIT 25.4 % (35.0-50.0); HEMOGLOBIN 7.9 g/dL (12.0-18.0); MCHC 31.2 g/dl (30-36)
[2023-10-21 05:28] LABS: MCH 30.6 (27-36); MCV 98.2 fl (81-99); PLATELET COUNT 319 K/uL (140-440); RBC 2.59 M/ul (4.3-5.7); RDW 17.3 (10.5-15.0)
[2023-10-21 05:54] LABS: ALBUMIN 2.9 g/dL (3.4-5.0); ALBUMIN/GLOBULIN RATIO 0.85 (1.1-2.4); ANION GAP 18.8 (7-21); BILIRUBIN, TOTAL 0.4 ng/dL (0.2-1.0); BUN/CREATININE RATIO 16.15 (6.0-28.6); CALCIUM 8.9 mg/dL (8.5-10.1); CREATININE, SERUM 5.26 mg/dL (0.70-1.30); MAGNESIUM 1.5 mg/dL (1.8-2.4); PHOSPHORUS, INORGANIC 5.1 mg/dL (2.5-4.9); POTASSIUM 4.8 mmol/L (3.5-5.1); PROTEIN, TOTAL 6.3 g/dL (6.4-8.2)
[2023-10-21 06:27] LABS: LYMPHOCYTES, MANUAL DIFF 91; NEUTROPHILS, MANUAL DIFF 9
[2023-10-21 06:57] LABS: BILIRUBIN, URINE NEGATIVE (negative); BLOOD/HGB, URINE LARGE (Negative); KETONE, URINE NEGATIVE (Negative); LEUK ESTERASE, URINE SMALL (negative); NITRITE, URINE NEGATIVE (negative)
[2023-10-21 07:15] LABS: BACTERIA, URINE NONE SEEN /hpf (negative); CASTS, URINE NONE SEEN \\lpf; COLLECTION TYPE, URINE CLEAN CATCH; CRYSTALS, URINE NONE SEEN (0-1+); EPITHELIAL CELLS, URINE 0 /lpf (0-1+); RED BLOOD CELLS, URINE 41-50 /hpf (0-5); WHITE BLOOD CELLS, URINE 0-1 /HPF (0-5)
[2023-10-21 07:16] LABS: REFLEX CULTURE, URINE No (No)
[2023-10-21] MEDS ORDERED: MAGNESIUM SULFATE 2 GM/50 ML BAG IV ONE (07:30)
[2023-10-21] MEDS ORDERED: PHARMACY RENAL DOSE ADJUSTMENT 1 DOSE MISC PO SCH (12:00)
[2023-10-21] MEDS ORDERED: ELIQUIS5 MG PO (12:02)
[2023-10-21] MEDS ORDERED: PERMETHRIN60 GM TOP (12:02)
[2023-10-22] VITALS (10 sets, daily range): BP systolic 107–142; BP diastolic 60–80
[2023-10-22 06:47] LABS: HEMOGLOBIN 8.4 g/dL (12.0-18.0)
[2023-10-22 06:49] LABS: BASOPHILS 0.2 % (0-2); EOSINOPHILS 1.3 % (0-6); LYMPHOCYTES 83.2 % (24-44); MCH 30.6 (27-36); MCV 98.8 fl (81-99); MONOCYTES 2.9 % (0-12); NEUTROPHILS 12.4 % (39-80); PLATELET COUNT 336 K/uL (140-440); RBC 2.73 M/ul (4.3-5.7); RDW 17.2 (10.5-15.0)
[2023-10-22 07:13] LABS: ALBUMIN 2.8 g/dL (3.4-5.0); ALBUMIN/GLOBULIN RATIO 0.8 (1.1-2.4); ANION GAP 15.1 (7-21); BILIRUBIN, TOTAL 0.3 ng/dL (0.2-1.0); BUN/CREATININE RATIO 19.28 (6.0-28.6); CALCIUM 8.2 mg/dL (8.5-10.1); CREATININE, SERUM 3.06 mg/dL (0.70-1.30); POTASSIUM 4.1 mmol/L (3.5-5.1); PROTEIN, TOTAL 6.3 g/dL (6.4-8.2)
[2023-10-23 01:34] VITALS: BP 117/68
[2023-10-23 02:54] VITALS: BP 117/68
[2023-10-23 05:04] VITALS: BP 151/73
[2023-10-23 05:53] VITALS: BP 151/73
[2023-10-23 06:54] LABS: HEMOGLOBIN 8.4 g/dL (12.0-18.0); RDW 17.4 (10.5-15.0)
[2023-10-23 06:55] LABS: HEMATOCRIT 26.4 % (35.0-50.0); MCH 31.1 (27-36); MCV 97.5 fl (81-99); PLATELET COUNT 331 K/uL (140-440); RBC 2.71 M/ul (4.3-5.7)
[2023-10-23 07:07] LABS: ALBUMIN 2.9 g/dL (3.4-5.0); ALBUMIN/GLOBULIN RATIO 0.85 (1.1-2.4); ANION GAP 14.1 (7-21); BILIRUBIN, TOTAL 0.2 ng/dL (0.2-1.0); BUN/CREATININE RATIO 16.94 (6.0-28.6); CALCIUM 8.1 mg/dL (8.5-10.1); CREATININE, SERUM 2.42 mg/dL (0.70-1.30); POTASSIUM 4.1 mmol/L (3.5-5.1); PROTEIN, TOTAL 6.3 g/dL (6.4-8.2)
[2023-10-23 07:11] LABS: LYMPHOCYTES, MANUAL DIFF 88; MONOCYTES, MANUAL DIFF 1; NEUTROPHILS, MANUAL DIFF 11
[2023-10-23 09:15] VITALS: BP 144/60
== END 2023-10-23 10:37 | disposition home or self-care (01) | DRG 683 ==
LOC: ED 16:33 → CCU 20:54 → MS 20:54 → CCU 21:12 → MS 10-21 11:09
PROVIDERS: Emergency Medicine; ADMIT Family Medicine; ATTEND Internal Medicine
DX: N17.9 Acute kidney failure, unspecified (principal); C91.10 Chronic lymphocytic leukemia of B-cell type not having achieved remission; I82.4Z1 Acute embolism and thrombosis of unspecified deep veins of right distal lower extremity; E87.5 Hyperkalemia; R31.9 Hematuria, unspecified; F10.90 Alcohol use, unspecified, uncomplicated; E83.42 Hypomagnesemia; Z53.9 Procedure and treatment not carried out, unspecified reason
CPT/HCPCS: 36415; 51798; 80048; 80053; 81001; 83735; 84100; 85025; 93005; 93010; 97161; 97165; 99285-25; J0360; J1815; J3475; J7030; J7040; J7121

== ENCOUNTER 2024-05-29 06:42 | Day surgery (SDC) | payer SELFPAY ==
[2024-05-24 16:27] VITALS: BP 113/66
[2024-05-29] VITALS (10 sets, daily range): BP systolic 97–123; BP diastolic 55–79
[~2024-05-29] VITALS: Ht 180.3 cm; Wt 74.0 kg
[~2024-05-29 06:42] MED LIST changes: +DEXAMETHASONE SOD PHOS 4 MG/ML VIAL ONE; +ELIQUIS5 MG PO; +FAMOTIDINE 20 MG/ 2 ML VIAL ONE; +KETOROLAC TROMETHAMINE 30 MG/ML VIAL ONE; +LACTATED RINGER'S 1,000 ML IV ONE; +LACTATED RINGER'S 1,000 ML IV SCH; +METOCLOPRAMIDE HCL 10 MG/2 ML SDV ONE; +MIDAZOLAM HCL 2 MG/2 ML VIAL ONE; +PERMETHRIN60 GM TOP; +fentaNYL citrate 100 MCG/2 ML VIAL ONE; +ondansetron HCL 4 MG/2 ML VIAL ONE; +propofoL 200 MG/20 ML VIAL ONE
[2024-05-29] MEDS ORDERED: IBLOOD GLUCOSE TEST STRIP 1 EA TEST VI PRN ×2 (07:00→09:45)
[2024-05-29] MEDS ORDERED: LIDOCAINE HCL 1% 5 ML SDV INJ ONE (07:00)
[2024-05-29] MEDS ORDERED: CEFAZOLIN SODIUM 2 GM/20 ML SYR IV SCH (07:00)
[2024-05-29] MEDS ORDERED: ondansetron HCL 4 MG/2 ML VIAL IV PRN ×2 (07:30→09:45)
[2024-05-29] MEDS ORDERED: MORPHINE SULFATE 4 MG/ML VIAL IV PRN (07:30)
[2024-05-29] MEDS ORDERED: diphenhydrAMINE HCL 25 MG CAP PO PRN (07:30)
[2024-05-29] MEDS ORDERED: LACTATED RINGER'S 1,000 ML IV SCH (07:30)
[2024-05-29] MEDS ORDERED: ACETAMINOPHEN 500 MG TAB PO PRN (07:45)
[2024-05-29] MEDS ORDERED: propofoL 200 MG/20 ML VIAL ONE (09:16)
[2024-05-29] MEDS ORDERED: MORPHINE SULFATE 10 MG/ML VIAL ONE (09:25)
[2024-05-29] MEDS ORDERED: DIGOXIN 500 MCG/2 ML AMP ONE (09:37)
[2024-05-29] MEDS ORDERED: METOCLOPRAMIDE HCL 10 MG/2 ML SDV IV PRN (09:45)
[2024-05-29] MEDS ORDERED: NALOXONE HCL 0.4 MG SYR IV PRN (09:45)
[2024-05-29] MEDS ORDERED: droPERidol 5 MG/2 ML VIAL IV PRN (09:45)
[2024-05-29] MEDS ORDERED: fentaNYL citrate 50 MCG/ML SDV IV PRN (09:45)
[2024-05-29] MEDS ORDERED: PROCHLORPERAZINE EDISYLATE 10 MG/2 ML VIAL IV PRN (09:45)
[2024-05-29] MEDS ORDERED: MORPHINE SULFATE 10 MG/ML VIAL IV PRN (09:45)
[2024-05-29] MEDS ORDERED: LACTATED RINGER'S 1,000 ML IV ONE (09:46)
[2024-05-29] MEDS ORDERED: CIPRO500 MG PO (13:33)
[2024-05-29] MEDS ORDERED: TRAMADOL HCL50 MG PO (13:38)
[2024-05-29] MEDS ORDERED: COLACE100 MG PO (13:42)
[2024-05-30 01:21] VITALS: BP 120/90
[2024-05-30 01:27] VITALS: BP 120/90
[2024-05-30 05:06] VITALS: BP 107/56
[2024-05-30] MEDS ORDERED: CEFTRIAXONE SODIUM 1 GM VIAL IV ONE (07:33)
[2024-05-30] MEDS ORDERED: CEFTRIAXONE SODIUM 1 GM in SODIUM CHLORIDE 0.9% 100 ML IV SCH (09:00)
[2024-05-30 10:04] VITALS: BP 106/52
--- NOTE | 2024-06-01 13:59 | PATH ---
[facility] [address] [place], [place] [address] Signed SPECIMEN(S): A PROSTATE CHIPS SPECIMEN SOURCE: A. PROSTATE CHIPS CLINICAL HISTORY: BPH with LUTS. FINAL PATHOLOGIC DIAGNOSIS: Prostate chips: - Prostatic adenocarcinoma. - Urbano score: 5+4 = 9/10. - Grade Group: 5. - Tumor involves 70% of prostatic glandular tissue fragments. - Perineural invasion: Present. COMMENT: As part of [facility]' Quality Improvement Program, this case was reviewed by another member of our pathology staff. Diagnostic notification to the office of Dr. Restrepo is initiated by Dr. Hammond and will be recorded separately. JVR:smn MICROSCOPIC EXAMINATION: Histologic sections of all submitted blocks are examined by light microscopy. These findings, together with the gross examination, support the pathologic diagnosis. Immunohistochemical staining, with appropriately reactive controls, for p63, high molecular weight cytokeratin, and AMACR (TriCAP--prostate cocktail multiplex stain) was performed on block A1. There is a complete absence of basal marker (p63, HMWK) expression combined with cytoplasmic AMACR expression in the focus/foci of interest. These results support the diagnosis of prostatic adenocarcinoma. Immunostains are performed with appropriate controls on block A1 and show the following: - MINE-3: Negative in tumor nuclei. - NKX3.1: Positive in tumor nuclei. JVR:smn GROSS DESCRIPTION: The specimen, labeled and designated "Kristi Howe, " and designated on the PATIENT NAME: DAVID HOWE PATHOLOGY DATE OF : 36 REPORT #: [id number] PHYSICIAN: ZAINAB TORRES PCP: MARTHA TREVIZO MD REPORT IS CONFIDENTIAL AND NOT TO BE RELEASED WITHOUT AUTHORIZATION [facility] [address] [facility] [place], [place] [address] Signed requisition "prostate chips," is received in formalin is a 14 g, 7.4 x 6.5 x 1.4 cm aggregate of pink-vazquez to self rubbery soft tissue. Approximately 70% of the specimen is in (A1-A9). FB (under the direct supervision of a pathologist) The Gross Description was prepared using a voice recognition system. The report was reviewed for accuracy; however, sound-alike word errors, addition and/or deletions may occur. If there is any question about this report, please contact Client Services. ADDITIONAL NOTES: Immunohistochemical and/or in situ hybridization studies were performed on this case with the appropriate positive controls that react as expected. This test was developed and its performance characteristics determined by [facility]. It has not been cleared or approved by the U.S. Food and Drug Administration. The FDA has determined that such clearance or approval is not necessary. This test is used for clinical purposes. It should not be regarded as investigational or for research. [facility] is certified under the Clinical Laboratory Improvement Amendments of 1988 (CLIA) as qualified to perform high complexity clinical laboratory testing. This assay has not been validated for specimens that have been decalcified. PERFORMING LABORATORY: Technical component was performed by [facility], [address] [place] [id number] (CLIA# [id number]). Professional interpretation was performed by [facility] - [facility], [address] [place] [id number] (CLIA#: [id number]). Diagnostician: Marino Hammond MD Pathologist Electronically Signed 06/01/2024 Copies: ~ PATIENT NAME: DAVID HOWE PATHOLOGY DATE OF : 36 REPORT #: [id number] PHYSICIAN: ZAINAB PATHOLOGY PCP: MARTHA TREVIZO MD REPORT IS CONFIDENTIAL AND NOT TO BE RELEASED WITHOUT AUTHORIZATION
== END 2024-05-30 11:08 | disposition home or self-care (01) ==
LOC: DS 06:42 → MS 11:45 → DS 05-30 11:08
PROVIDERS: ATTEND Urology
PROC: 0V507ZZ Destruction of Prostate, Via Natural or Artificial Opening (ICD-10-PCS; principal; 2024-05-29 08:30)
DX: N40.1 Benign prostatic hyperplasia with lower urinary tract symptoms (principal); R33.8 Other retention of urine; C61 Malignant neoplasm of prostate; C91.90 Lymphoid leukemia, unspecified not having achieved remission; I25.10 Atherosclerotic heart disease of native coronary artery without angina pectoris; I10 Essential (primary) hypertension; Z86.16 Personal history of COVID-19
CPT/HCPCS: 00914; 51700; 71046; 96374; A9270; C1769; J0690; J0696; J1100; J1160; J1885; J2250; J2270; J2405; J2704; J2765; J3010; J7121

== ENCOUNTER 2025-01-09 16:32 | Inpatient (IN) | payer MEDICARE ==
[~2025-01-09] VITALS: Ht 180.3 cm; Wt 81.3 kg
[~2025-01-09 16:32] MED LIST changes: +CIPRO500 MG PO; +COLACE100 MG PO; -DEXAMETHASONE SOD PHOS 4 MG/ML VIAL ONE; -FAMOTIDINE 20 MG/ 2 ML VIAL ONE; -KETOROLAC TROMETHAMINE 30 MG/ML VIAL ONE; -LACTATED RINGER'S 1,000 ML IV ONE; -LACTATED RINGER'S 1,000 ML IV SCH; -METOCLOPRAMIDE HCL 10 MG/2 ML SDV ONE; -MIDAZOLAM HCL 2 MG/2 ML VIAL ONE; +TRAMADOL HCL50 MG PO; -fentaNYL citrate 100 MCG/2 ML VIAL ONE; -ondansetron HCL 4 MG/2 ML VIAL ONE; -propofoL 200 MG/20 ML VIAL ONE
[2025-01-09 18:10] LABS: MCH 31.0 PG (25.7-32.2); MCHC 31.4 g/dL (32.3-36.5); MCV 98.5 fL (79.0-92.2); RBC 3.39 M/uL (4.63-6.08)
[2025-01-09 18:24] LABS: ALT (SGPT) 20.0 U/L (14-59); AST (SGOT) 41.0 U/L (15-37); GLOMERULAR FILTRATION RATE,EST 5.0 mL/min (>60); PROTEIN, TOTAL 7.3 g/dL (6.4-8.2); UREA NITROGEN 86.0 mg/dL (7-18)
[2025-01-09 18:25] LABS: LYMPHOCYTES, MANUAL DIFF 72; MONOCYTES, MANUAL DIFF 2; NEUTROPHILS, MANUAL DIFF 26
[2025-01-09] MEDS ORDERED: CALCIUM GLUCONATE 1,000 MG/10 ML VIAL IV ONE (21:00)
[2025-01-09] MEDS ORDERED: Insulin Regular, Human 100 UNIT/ML ML IV ONE (21:00)
[2025-01-09] MEDS ORDERED: SODIUM CHLORIDE 0.9% 1,000 ML IV ONE (21:00)
[2025-01-09] MEDS ORDERED: DEXTROSE 50% 50 ML SYR IV ONE (21:00)
[2025-01-09] MEDS ORDERED: ALBUTEROL SULFATE 0.083% 3 ML VIAL ONE (21:14)
[2025-01-09] MEDS ORDERED: LIDOCAINE 2% VISCOUS 6 ML SYR TOP ONE (21:15)
[2025-01-09] MEDS ORDERED: ALBUTEROL SULFATE 0.5% 2.5 MG/0.5 ML VIAL INH ONE (21:15)
[2025-01-09 21:24] LABS: BLOOD/HGB, URINE SMALL (Negative); KETONE, URINE TRACE (Negative)
[2025-01-09 21:25] LABS: LEUK ESTERASE, URINE LARGE (negative); NITRITE, URINE NEGATIVE (negative)
[2025-01-09 21:28] LABS: CRYSTALS, URINE NONE SEEN (0-1+); EPITHELIAL CELLS, URINE SQUAMOUS 1+ /lpf (0-1+)
[2025-01-09 21:29] LABS: BACTERIA, URINE RARE /hpf (negative); CASTS, URINE NONE SEEN \\lpf; REFLEX CULTURE, URINE Yes (No)
[2025-01-09] MEDS ORDERED: SODIUM CHLORIDE 0.9% 1,000 ML IV SCH (23:30)
[2025-01-09 23:54] LABS: GLOMERULAR FILTRATION RATE,EST 5.0 mL/min (>60); UREA NITROGEN 81.0 mg/dL (7-18)
[2025-01-10] MEDS ORDERED: SODIUM CHLORIDE 0.9% 1,000 ML IV SCH (01:00)
[2025-01-10] MEDS ORDERED: ACETAMINOPHEN 325 MG TAB PO PRN ×2 (01:00→11:30)
[2025-01-10 03:00] VITALS: BP 118/70
[2025-01-10 03:48] VITALS: BP 112/74
[2025-01-10 04:00] VITALS: BP 110/69
[2025-01-10 08:00] VITALS: BP 108/69
--- NOTE | 2025-01-10 08:09 | NUR ---
PT BLOOD SUGAR LOW RECHECKED, 75 THIS AM. GAVE PT HIS BKF TRAY HE IS CURRENTL;Y EATTING THIS TIME.
[2025-01-10] MEDS ORDERED: DEXTROSE 5% 1,000 ML IV SCH (08:15)
[2025-01-10 08:18] LABS: MCH 31.4 PG (25.7-32.2); MCHC 31.7 g/dL (32.3-36.5); MCV 99.3 fL (79.0-92.2); RBC 2.83 M/uL (4.63-6.08)
[2025-01-10 08:32] LABS: ALT (SGPT) 18.0 U/L (14-59); AST (SGOT) 43.0 U/L (15-37); GLOMERULAR FILTRATION RATE,EST 7.0 mL/min (>60); PHOSPHORUS, INORGANIC 6.4 mg/dL (2.5-4.9); PROTEIN, TOTAL 6.1 g/dL (6.4-8.2); UREA NITROGEN 69.0 mg/dL (7-18)
[2025-01-10 08:41] LABS: EOSINOPHILS, MANUAL DIFF 1; LYMPHOCYTES, MANUAL DIFF 63; NEUTROPHILS, MANUAL DIFF 36
--- NOTE | 2025-01-10 09:08 | NUR ---
pt is still eatting bkf at this time, doing well feeding self. Tylenol 650mg give for pain in hands ans shoulders. PT had good resluts with that. Pain decreased some. Pt currently talking with a rehabilitation case coordinator for insurance.
--- NOTE | 2025-01-10 10:23 | NUR ---
ALERT AND ORIENTED IN BED. LIVES ALONE IN APARTMENT AND HAS A FLIGHT OF STAIRS TO GET INSIDE. STATES HE HAS A WALKER AND SHOWER CHAIR. HE IS ABLE TO DRIVE, BUT IS ABLE TO HAVE FRIEND ASSIST WITH TRANSPORTATION. HAS NO FINANCIAL CONCERNS, ABLE TO PAY FOR UTILITIES, FOOD AND MEDS WITHOUT ISSUES. PLANS TO RETURN TO HOME IF HE CAN DO STAIRS TO GET INSIDE. LIKELY WILL NEED PT/OT EVALUATIONS FOR WEAKNESS. STATES YESTERDAY HE WAS UNABLE TO DO STAIRS TO GET INTO APARTMENT.
--- NOTE | 2025-01-10 11:25 | NUR ---
DR WILSON INTO SEE PT THIS AM, NEW ORDERS RECEIVED. PT HAS NO C/O'S AT THIS TIME. WHEN ASKED IF HE WANTED TO HAVE A BED BATH PT STATES "NO, I AM GOOD." EXPLAINED THAT I WOULD LET HIM REST A BIT AND TRY TO COMPLETE THIS LATER TODAY.
[2025-01-10] MEDS ORDERED: TAMSULOSIN HCL 0.4 MG CAP PO SCH (12:00)
[2025-01-10] MEDS ORDERED: PHARMACY RENAL DOSE ADJUSTMENT 1 DOSE MISC PO SCH (12:00)
[2025-01-10] MEDS ORDERED: DEXTROSE 50% 50 ML SYR IV PRN ×2 (12:00)
[2025-01-10] MEDS ORDERED: DEXTROSE 5% 1,000 ML IV PRN (12:00)
[2025-01-10] MEDS ORDERED: IBLOOD GLUCOSE TEST STRIP 1 EA TEST XX PRN (12:00)
[2025-01-10] MEDS ORDERED: GLUCAGON,HUMAN RECOMBINANT 1 MG/ML VIAL SUB-Q PRN (12:00)
--- NOTE | 2025-01-10 12:34 | NUR ---
PT WORKING WITH PT AND WAS UNABLE TO GET UP TO THE CHAIR, PT WAS TRYING TO MOVE HIS LEGS, BUT WAS UNABLE TO PIVOT TO THE CHAIR. PT CAN THINK HE IS MOVING, BUT HIS LEG DID NOT MOVE. PT HAS SOME SHAKING IN HIS ARM AND HANDS, BUT STATES I HAVE HAD THAT FOR SOME TIME. HE C/O'S NUMBNESS AND TINGLING IN HIS RT ARM AND LEG. HE APPEARS TO THINK HE CAN MOVE FROM BED TO CHAIR, BUT IS UNALBE TO AT THIS TIME.
--- NOTE | 2025-01-10 13:07 | NUR ---
SPOKE WITH PATIENT ABOUT SNF. STATES HE IS UNSURE IF HE WANTS TO GO TO SNF AND IS GOING TO "THINK ABOUT IT." SEEMS MORE OPEN TO SNF WHEN MENTIONED HE COULD POTENTIALLY GO TO [facility] IN [place] AND NOT HAVE TO LEAVE TOWN. REFERRAL SENT TO [facility], WILL SPEAK WITH PATIENT AGAIN REGARDING SNF TOMORROW MORNING.
--- NOTE | 2025-01-10 13:18 | NUR ---
PT TO CT VIA HOSPITAL BED. PT IS SALINE LOCKED IV FLUSHED WELL IN RT AC. SCD'S ARE INPLACE ALSO.
[2025-01-10 13:45] VITALS: BP 107/63
--- NOTE | 2025-01-10 13:47 | NUR ---
PT RETURNED VIA BED TO ROOM [address], JESSA ACTIVIY WELL, LOWER LINES CHANGED ALSO AT THIS TIME AND FRESH ATTENDS PLACED.
[2025-01-10] MEDS ORDERED: TYLENOL325 MG PO (14:06)
[2025-01-10] MEDS ORDERED: CHARCOAL, ACTI260 MG PO (14:06)
[2025-01-10] MEDS ORDERED: ASPIRIN EC325 MG PO (14:07)
--- NOTE | 2025-01-10 14:07 | NUR ---
MED REC COMPLETE
--- NOTE | 2025-01-10 14:15 | NUR ---
UR CLINICAL REVIEW: 2 MN FOR [facility] MECH[employer] MEET INPT FOR [place] WITH NEED FOR SERIAL LABS AND IV HYDRATION MEDICARE INPT 01/10/25 @ 1130 ORDER MATCHES REG NO AUTH REQUIRED PER MEDICARE GUIDELINES DISCHARGE TO SNF WHEN MEDICALLY STABLE
[2025-01-10 14:18] LABS: GLOMERULAR FILTRATION RATE,EST 7.0 mL/min (>60); UREA NITROGEN 69.0 mg/dL (7-18)
--- NOTE | 2025-01-10 14:32 | NUR ---
NOTIFIED BY ROZ AT [facility], THEY CAN ACCEPT PATIENT TO THEIR FACILITY IF HE IS AGREEABLE, WHEN HE IS MEDICALLY READY.
[2025-01-10] MEDS ORDERED: LACTATED RINGER'S 1,000 ML IV SCH (14:45)
--- NOTE | 2025-01-10 17:13 | NUR ---
pt has been sleeping this afternoon. No c/o except his shoulder. Oftered Tylenol po pt denies need for it at this time. Cut up pt food and set up his dinner tray.
--- NOTE | 2025-01-10 17:49 | NUR ---
pt was feeding self dinner after staff cut up his meat. Pt yelled out due to he could not push his call light even though it was within reach. Pt placed on bedpan. 1750 pt checked on and pt still has not had bm, but he wanted his food for dinner back. Pt dinner tray placed back infront of him.
--- NOTE | 2025-01-10 18:28 | NUR ---
pt removed from bedpan, no bm noted, pt is passing gas. fresh attends inplace and pt repositioned in bed. Call light within reach. Side rails x 3 and bed in the lowest position.
--- NOTE | 2025-01-10 19:11 | NUR ---
REPORT GIVEN TO REGISTERED VASCULAR TECHNOLOGIST (RVT), ALL QUESTION ANSWERED.
[2025-01-10 20:03] LABS: GLOMERULAR FILTRATION RATE,EST 8.0 mL/min (>60); UREA NITROGEN 66.0 mg/dL (7-18)
[2025-01-10] MEDS ORDERED: Calcium Gluconate in NS 1,000 MG/50 ML BAG IV ONE (21:15)
--- NOTE | 2025-01-10 21:30 | NUR ---
PATIENT RESTING IN BED. AAOX4. IV FLUIDS INCREASED PER ORDER. IV SITE WNL X1. BUSTOS DRAINING YELLOW URINE WITH RED SEDIMENT. SCDs IN PLACE. PATIENT TOLERATING ROOM AIR. LUNG SOUNDS CLEAR. DENIED GI UPSET. VS STABLE. ASSISTED PATIENT TO REPOSITION FOR COMFORT. CALL LIGHT IN REACH.
[2025-01-10 21:41] VITALS: BP 125/77
--- NOTE | 2025-01-10 21:45 | EKG ---
[facility] [address] [facility] [place] [address] Signed Normal sinus rhythm Left axis deviation Abnormal ECG When compared with ECG of 24-MAY-2024 16:38, No significant change was found Confirmed by Mark Wilson MD () on 01/10/2025 9:45:30 PM Electronically Signed By: MARK WILSON MD 01/10/252144 PATIENT NAME: ISELADAVID Electrocardiogram DATE OF : 36 PHYSICIAN: MARK WILSON MD REPORT #: [id number] REPORT IS CONFIDENTIAL AND NOT TO BE RELEASED WITHOUT AUTHORIZATION
--- NOTE | 2025-01-10 23:12 | NUR ---
PATIENT REPORTS BEING COMFORTABLE IN BED. DENIED ANY NEEDS. CALL LIGHT IN REACH.
--- NOTE | 2025-01-10 23:31 | NUR ---
patient resting in bed with eyes closed. rr even and unlabored. vital signs stable. wound vac intact and on 125 mmHg suction. central line intact. no evidence of acute distress noted. call light in reach
[2025-01-11 00:32] LABS: GLOMERULAR FILTRATION RATE,EST 8.0 mL/min (>60); UREA NITROGEN 67.0 mg/dL (7-18)
--- NOTE | 2025-01-11 02:41 | NUR ---
assisted patient to straighten out his blankets. patient denied any other needs or concerns. iv site wnl; fluids per order. pittman emptied; large amount of clear yellow urine noted. less sedmient than previously noted.
--- NOTE | 2025-01-11 04:00 | NUR ---
PATIENT RESTING IN BED. EYES CLOSED. RR EVEN AND NONLABORED. HR 90'S. CALL LIGHT IN REACH.
[2025-01-11 05:22] LABS: MCH 31.5 PG (25.7-32.2); MCHC 32.8 g/dL (32.3-36.5); MCV 95.9 fL (79.0-92.2); RBC 2.67 M/uL (4.63-6.08)
[2025-01-11 05:33] LABS: EOSINOPHILS, MANUAL DIFF 2; LYMPHOCYTES, MANUAL DIFF 80; MONOCYTES, MANUAL DIFF 1; NEUTROPHILS, MANUAL DIFF 17
[2025-01-11 05:36] LABS: ALT (SGPT) 21.0 U/L (14-59); AST (SGOT) 55.0 U/L (15-37); GLOMERULAR FILTRATION RATE,EST 9.0 mL/min (>60); PHOSPHORUS, INORGANIC 4.5 mg/dL (2.5-4.9); PROTEIN, TOTAL 5.9 g/dL (6.4-8.2); UREA NITROGEN 64.0 mg/dL (7-18)
--- NOTE | 2025-01-11 06:00 | NUR ---
PATIENT WOKE WHEN RN IN ROOM. PATIENT IS AAOX4. VS STABLE. BUSTOS DRAINING LARGE AMOUNT OF CLEAR YELLOW URINE. PATIENT CONTINUES TO HAVE NUMBNESS IN HIS FINGERS AND RIGHT ARM IS WEAK. PATIENT REPORTS THIS IS TYPICAL FOR HIS ARTHRITIS. DENIED ANY FURTHER NEEDS. CALL LIGHT IN REACH.
[2025-01-11 06:29] VITALS: BP 120/71
--- NOTE | 2025-01-11 07:30 | NUR ---
PATIENT REPORT GIVEN TO RNS. PATIENT IS A MEDSURG PATIENT. PATIENT HAS A BUSTOS CATHETER PRESENT. PATIENT CALLS APPROPRIATELY. CALL LIGHT IN REACH.
[2025-01-11] MEDS ORDERED: DEXTROSE 5% 1,000 ML IV SCH (08:15)
[2025-01-11] MEDS ORDERED: MAGNESIUM SULFATE 2 GM/50 ML BAG IV SCH (08:15)
--- NOTE | 2025-01-11 08:30 | NUR ---
RN IN TO SEE PATIENT. PATIENT SITTING UP AND EATING BREAKFAST. PATIENT MEAL PREPPED FOR HIM D/T CORDINATION DIFFICULTIES.
--- NOTE | 2025-01-11 10:00 | NUR ---
OCCUPATIONAL THERAPY IN TO WORK WITH PATIENT. PATIENT ATE ALL HIS BREKFAST AND TOELRATED WELL. PATIENT REPORTS SOME CORDINATION DIFFICULTIES WHILE EATING AND ONGOING RESTLESS LEGS THAT "HAVENT SETTLED DOWN" PER PATIENT. PATIENT REPORTS HIS RESTLESS LEGS HAVE WORSENED. WILL UPDATE .
--- NOTE | 2025-01-11 10:45 | NUR ---
Spoke with Yusuf. He would like to go to [facility] on discharge. He declines a Pt. Choice list as he only wants to be in [place]. His chart was faxed yesterday and per my coworker he was accepted whenever he is ready for dc.
[2025-01-11 11:22] VITALS: BP 120/76
--- NOTE | 2025-01-11 11:49 | NUR ---
PATIENT PROVIDED WITH FRESH WATER. MD IN TO SEE PATIENT AND DISCUSS PLAN OF CARE. PATIENT REPORTS CONTINUED WEAKNESS AND WROKING WITH PT/OT. PATIENT HAS BUSTOS CATHETER IN PLACE AND PER MD PLAN WILL BE FOR IT TO STAY PLACE UPON DISCHARGE,
--- NOTE | 2025-01-11 12:00 | NUR ---
PASTORAL CARE IN TO VISIT WITH PATIENT. NO NEEDS AT THIS TIME.
[2025-01-11 14:19] LABS: GLOMERULAR FILTRATION RATE,EST 12.0 mL/min (>60); UREA NITROGEN 53.0 mg/dL (7-18)
--- NOTE | 2025-01-11 14:22 | NUR ---
PHYSICAL THERAPY IN WORKING WITH PATIENT.
[2025-01-11] MEDS ORDERED: LACTATED RINGER'S 1,000 ML IV SCH (15:00)
[2025-01-11 16:00] VITALS: BP 120/72
--- NOTE | 2025-01-11 16:50 | NUR ---
REPROT GIVEN TO LASHONDA DEL CID. PATIENT BELONGINGS SENT WITH PATIENT. PATIENTS CATHETER EMPTIED AND FLUSHED WITH 10MLG NS AFTER NOTED DECREASED URINE OUTPUT. AFTER FLUSH URINE FLOWED WITH NO ISSUES. MD UPDATED AND STAFF WITH MONITOR FOR FLOW. PATIENT REQUESTING A LIDOCAIN PATCH AND MEDICINE FOR RESTLESS LEGS. SEE NEW ORDERS. PATIENT TRANSFERED BY MEDICAL SURGICAL STAFF VIUA BED TO ROOM 122.
[2025-01-11 16:56] VITALS: BP 125/68
--- NOTE | 2025-01-11 17:00 | NUR ---
RECEIVED REPORT FROM NEHEMIAS NUNEZ. PT TRANSFERRED TO RM 122, BUSTOS CARE DONE, VSS, ICE WATER GIVEN. NO OTHER NEEDS AT THIS TIME, CALL LIGHT IN REACH.
[2025-01-11] MEDS ORDERED: ROPINIROLE HCL 0.25 MG TAB PO SCH (18:00)
--- NOTE | 2025-01-11 19:10 | NUR ---
REPORT RECIEVED FROM NEHEMIAS MOFFETT AND NEHEMIAS MUNIZ. PATIENT LAY IN BED WITH HOB ELEVATED. IVF INFUSING WITHOUT DIFFICULTY. BUSTOS IN PLACE AND DRAINGING. PATIENT AWAKE AND ALERT WATCHING TV. NO NEEDS IDENTIFIED AT THIS TIME. CALL LIGHT AND BELONGINGS IN REACH.
[2025-01-11 20:49] VITALS: BP 126/76
--- NOTE | 2025-01-11 20:50 | NUR ---
PT SITTING UP IN BED. VITALS DONE, ICE PROVIDED. CALL LIGHT IN REACH, NO NEEDS AT THIS TIME.
[2025-01-11 20:55] VITALS: BP 126/76
[2025-01-11 21:27] LABS: GLOMERULAR FILTRATION RATE,EST 13.0 mL/min (>60); UREA NITROGEN 55.0 mg/dL (7-18)
--- NOTE | 2025-01-11 21:45 | NUR ---
ASSESSMENT COMPLETED. PATIENT LAYING IN BED AWAKE AND ALERT WATCHING TV. BUSTOS EMPTIED AND DOCUMENTED AND CONTINUES TO DRAIN WITHOUT COMPLICATIONS. IVF INFUSING WITHOUT DIFFICULTY. PATIENT REFUSED SCD'S ON DUE TO RESTLESS LEGS. NO OTHER NEEDS IDENTIFIED AT THIS TIME. BELONGINGS AND CALL LIGHT ON LEFT SIDE.
--- NOTE | 2025-01-11 23:47 | NUR ---
ROUNDED ON PATIENT, RESTING ON BACK IN BED WITH HOB ELEVATED. RESPIRATIONS EVEN AND UNLABORED. IVF INFUSING WITHOUT DIFFICULTY. BUSTOS CONTINUING TO DRAIN. NO NEEDS IDENTIFIED AT THIS TIME. CALL LIGHT AND BELONGINGS IN REACH.
[2025-01-12] VITALS (19 sets, daily range): BP systolic 89–147; BP diastolic 55–82
--- NOTE | 2025-01-12 00:14 | NUR ---
IN ROOM TO ASSESS PATIENT DUE TO INCREASE IN HEART RATE UP TO 140S. VS OBTAINED, PATIENT DENIES CHEST PAIN. STATES HE WAS SLEEPING AND WOKE UP TO NURSES IN ROOM. TC TO DR. WILSON TO INFORM OF HEART RATE INCREASE AND NO CHANGE OF RHYTHM PER CCU, ORDER FOR EKG STAT, CALL BACK WITH RESULTS. PATIENT REPORTS HE IS FEELING "NORMAL" DENIES CHEST PAIN, DENIES FEELING HEART RACE.
--- NOTE | 2025-01-12 00:20 | NUR ---
DR WILSON AT BEDSIDE ASSESSING pt.
[2025-01-12] MEDS ORDERED: METOPROLOL TARTRATE 5 MG/5 ML VIAL ONE (00:23)
--- NOTE | 2025-01-12 00:26 | NUR ---
DOUBLE VERIFIED LOPRESSOR PUSH WITH PRIMARY NEHEMIAS SOOD PRIOR TO MED ADMINISTRATION, REMAINS AT [facility].
[2025-01-12] MEDS ORDERED: METOPROLOL TARTRATE 5 MG/5 ML VIAL IV ONE (00:30)
--- NOTE | 2025-01-12 00:30 | NUR ---
CARAMEL COLORING OPERATOR NOAH VERDUZCO IN ROOM.
--- NOTE | 2025-01-12 00:38 | NUR ---
DR WILSON PUTTING IN ORDERS FOR LABS, SUKUMAR IN LAB MADE AWARE AND TO COME TO pt ROOM FOR DRAW.
[2025-01-12] MEDS ORDERED: LACTATED RINGER'S 1,000 ML IV ONE (00:45)
--- NOTE | 2025-01-12 00:48 | NUR ---
pt TRANSFERRED TO CCU BY PRIMARY RN BARRIE, NEHEMIAS GUTIÉRREZ AND DONOR RECRUITER AT THIS TIME AND OFF FLOOR
--- NOTE | 2025-01-12 00:55 | NUR ---
REPORT GIVEN TO NEHEMIAS PAREDES IN CCU. TRANSFERRED VIA STRETCHER TO CCU.
--- NOTE | 2025-01-12 01:09 | NUR ---
PATIENT TRANSFERED TO [facility] BY [facility]. PATIENT IS AAOX4. A.FIB ON THE MONITOR, RATE 90-110. BP STABLE. PATIENT DENIES CHEST PAIN OR SOB. IV BOLUS INFUSING PER ORDER. ABD IS SOFT, AND NONTENDER. BOWEL SOUNDS ACTIVE. LUNG SOUNDS CLEAR AND TOLERATING ROOM AIR. PATIENT LINENS CHANGED AND BUSTOS CARE DONE. REDNESS NOTED ON SCROTUM; AREA CLEANED AND DRIED. PATIENT POSITIONED FOR COMFORT. CALL LIGHT IN REACH. DR. WILSON IN TO SEE PATIENT.
[2025-01-12 01:18] LABS: GLOMERULAR FILTRATION RATE,EST 15.0 mL/min (>60); UREA NITROGEN 53.0 mg/dL (7-18)
[2025-01-12] MEDS ORDERED: METOPROLOL TARTRATE 5 MG/5 ML VIAL IV PRN (01:45)
[2025-01-12] MEDS ORDERED: ASPIRIN 325 MG TAB PO ONE (01:45)
[2025-01-12] MEDS ORDERED: METOPROLOL TARTRATE 25 MG TAB PO ONE (02:00)
[2025-01-12] MEDS ORDERED: ENOXAPARIN SODIUM 100 MG/ML SYR SUB-Q SCH (02:15)
--- NOTE | 2025-01-12 02:45 | NUR ---
MEDS GIVEN PER ORDER. PATIENT WOKE EASILY TO VOICE. VS REMAIN STABLE. CALL LIGHT IN REACH.
--- NOTE | 2025-01-12 04:30 | NUR ---
PATIENT CONVERTED TO SINUS RHYTHM WITH FREQUENT PACs. RATE 60-70'S.
[2025-01-12 05:30] LABS: MCH 31.3 PG (25.7-32.2); MCHC 32.5 g/dL (32.3-36.5); MCV 96.4 fL (79.0-92.2); RBC 2.75 M/uL (4.63-6.08)
--- NOTE | 2025-01-12 05:30 | NUR ---
PATIENT REPOSITIONED IN BED. ASSISTED TO DRINK WATER. PATIENT REPORTS BEING STIFF IN HIS JOINTS. PRN TYLENOL OFFERED. PATIENT DECLINED. PATIENT VS STABLE. IV FLUIDS PER ORDER.
[2025-01-12 05:44] LABS: EOSINOPHILS, MANUAL DIFF 2; LYMPHOCYTES, MANUAL DIFF 88; MONOCYTES, MANUAL DIFF 1; NEUTROPHILS, MANUAL DIFF 9
[2025-01-12 05:51] LABS: ALT (SGPT) 22.0 U/L (14-59); AST (SGOT) 45.0 U/L (15-37); GLOMERULAR FILTRATION RATE,EST 17.0 mL/min (>60); PHOSPHORUS, INORGANIC 3.6 mg/dL (2.5-4.9); PROTEIN, TOTAL 5.8 g/dL (6.4-8.2); UREA NITROGEN 48.0 mg/dL (7-18)
[2025-01-12] MEDS ORDERED: DEXTROSE 5% 1,000 ML IV SCH (07:45)
[2025-01-12] MEDS ORDERED: MAGNESIUM SULFATE 2 GM/50 ML BAG IV SCH (07:45)
[2025-01-12] MEDS ORDERED: POTASSIUM CHLORIDE 10 MEQ TABCR PO ONE ×2 (07:45→10:00)
--- NOTE | 2025-01-12 07:45 | NUR ---
REPORT RECIVED FROM [facility] SHIFT RN. PATIENT RESTING IN BED on iv fluids. pittman catheter remains in place. patient on monitor. per report patient has been in NSR since he converted around 0400.
--- NOTE | 2025-01-12 08:30 | NUR ---
MD IN TO SEE PATIENT. PATIENT SITTING UP IN BED AND DISCUSSING PLAN OF CARE. PER PATIENT HE FEELS HIS RIGHT ARM/HAND IS CONTINUING TO WORSEN AND NOT WORKING LIKE IT SHOULD BE. PATIENT COMPLAINS OF NUMBESS/TINGLING IN HAND AND CHRONIC NUMBNESS TINGLING IN FEET. PATIENT STATES "MY ARM HAS BEEN GETTING WORSE AND WORSE FOR AWHILE NOW". PATIENT REPORTS WORSENING OF MOVEMENT IN THE BILATERAL LOWER EXTREMITIES. PER PATIENT HE STATES "THAT MEDICINE YOU GAVE ME REALLY DID HELP WITH THE RESTLESS LEGS LAST NIGHT THOUGH". WILL WORK WITH PT/OT FOR STRENGTHENING AND MUSCLE CONTROL.
--- NOTE | 2025-01-12 10:00 | NUR ---
OT IN TO WORK WITH PATIENT, PATIENT UP TO CHAIR WITH 2 PERSON MAX ASSIT. PATIENT HAS DONE WELL WITH EATING THIS MORNING WITH HELP FROM OT AND BUILT UP SPOONS.
--- NOTE | 2025-01-12 12:30 | NUR ---
PATIENT WITH PROPERTY ASSESSMENT MONITOR IN CHAIR AT THIS TIME.
--- NOTE | 2025-01-12 12:49 | NUR ---
PATIENT LINEN CHANGED WHILE GONE IN MRI. PER MD STAFF OKAY NOT TO GO WITH PATIENT TO MRI.
--- NOTE | 2025-01-12 13:24 | NUR ---
PATIENT BACK FROM MRI AND TRANSFERED TO BED. ALL CLEAN LINEN IN PLACE. PATIENTS BUSTOS DRAINING WITH NO ISSUES. PATIENT REPORTS HE IS NOT HUNGRY FOR LUNCH AT THIS TIME AND WOULD LIKE TO EAT LATER.
--- NOTE | 2025-01-12 13:50 | NUR ---
Spoke with Yusuf. He cont. to plan to dc to [facility] when he is medically cleared. I spoke with Dr. Anna and plan for dc most likely is Wednesday. Pt states he is unable to walk at this time and requires 2 person assist.
--- NOTE | 2025-01-12 13:59 | EKG ---
[facility] [address] [facility] [place] [address] Signed Sinus tachycardia Left anterior fascicular block ST depression, consider subendocardial injury Abnormal ECG When compared with ECG of 09-JAN-2025 18:29, Vent. rate has increased BY [address] now depressed in Inferior leads ST now depressed in Anterolateral leads Nonspecific T wave abnormality now evident in Lateral leads Confirmed by Mark Wilson MD () on 01/12/2025 1:59:34 PM Electronically Signed By: MARK WILSON MD 01/12/25 1359 PATIENT NAME: DAVID WEISS Electrocardiogram DATE OF : 36 PHYSICIAN: MARK WILSON MD REPORT #: [id number] REPORT IS CONFIDENTIAL AND NOT TO BE RELEASED WITHOUT AUTHORIZATION
--- NOTE | 2025-01-12 14:00 | EKG ---
[facility] [address] [facility] [place] [address] Signed Atrial flutter with 2:1 AV conduction Left axis deviation Nonspecific ST abnormality Abnormal ECG When compared with ECG of 12-JAN-2025 00:18, Atrial flutter with 2 to 1 block has replaced Sinus tachycardia Confirmed by Mark Wilson MD () on 01/12/2025 2:00:41 PM Electronically Signed By: MARK WILSON MD 01/12/25 1400 PATIENT NAME: DAVID WEISS Electrocardiogram DATE OF : 36 PHYSICIAN: MARK WILSON MD REPORT #: [id number] REPORT IS CONFIDENTIAL AND NOT TO BE RELEASED WITHOUT AUTHORIZATION
--- NOTE | 2025-01-12 15:30 | NUR ---
PATIENT EATING BANNANAS AND DOES NOT WANT THE REST OF LUNCH. PATIENT WATCHING TV AND DOING ARM EXERCISES AT THIS TIME. NO OTHER NEEDS NOTED.
--- NOTE | 2025-01-12 17:26 | NUR ---
PATIENT RESTING AT THIS TIME. PATIENTS BUSTOS EMPTIED. PATIENT DINNER ARRIVED WILL BOOST AND SET PATIENTS DINNER TRAY UP FOR PATIENT TO BE ABLE TO EAT WITH BUILT UP HANDLES FOR EATING ASSITANCE.
--- NOTE | 2025-01-12 20:20 | NUR ---
PATIENT ALERT AND ORIENTED, HE FINISHED DINNER AT SHIFT CHANGE, COMMERCIAL LOAN OFFICER MADE HIM A MILK SHAKE, HE SAID, "THAT MILKSHAKE WAS VERY GOOD." HE REPORTS NO NEEDS AT THIS TIME. ASSESSMENT COMPLETE NO CHANGES FROM SHIFT REPORT. PATIENT SAID HIS LEGS ARE JUMPING, THEY ALWAYS DO. HE SAID, "THE PILL THEY GAVE ME THE OTHER NIGHT HELPED ALOT, BUT IT MADE MY HEART RATE GO UP AND BEAT FUNNY." THIS RN SAID, "THAT IS WHAT I WAS TOLD IN REPORT." WE DO NOT HAVE THAT ORDERED FOR YOU TONIGHT. HE REPORTS MILD PAIN, PATIENT ASKED IF HE WOULD LIKE TO TRY TYLENOL AT THIS TIME, HE SAID, "NO, NOT YET, MAYBE LATER, I WILL THINK ABOUT IT." PATIENT REPORTS NO OTHER NEEDS AT THIS TIME.
[2025-01-13] VITALS (10 sets, daily range): BP systolic 101–151; BP diastolic 57–115
--- NOTE | 2025-01-13 00:58 | NUR ---
PATIENT RESTING IN BED AWAKE, ALERT AND ORIENTED. HE REPORTS HE WAS ABLE TO SLEEP SOME, HE REPORTS HIS PAIN IS MILD JUST IN HIS RIGHT SHOULDER, HE REPORTS HE DOES NOT WANT ANY MEDICATIONS AT THIS TIME. ASSESSMENT COMPLETE, NO NEW CONCERNS. HE ASKED TO HAVE ASSISTANCE TO STRAIGHTEN OUT HIS BLANKETS, HE REPORTS NO OTHER NEEDS AT THIS TIME. CALL LIGHT IN REACH.
--- NOTE | 2025-01-13 03:51 | NUR ---
THIS RN HEARD PATIENT PUSH SIDE TABLE FROM NURSES STATION, THIS RN INTO PATIENT ROOM TO CHECK ON HIM. HE REPORTS HE WAS JUST TRYING TO GET TURNED ON HIS SIDE, PATIENT ASSISTED TO TURN ON HIS SIDE, PILLOW PLACED BEHIND HIS BACK FOR SUPPORT, BED ALARM ON FOR PATIENT SAFETY, CALL LIGHT IN REACH, AM ASSESSMENT COMPLETE. NO NEW CONCERNS.
[2025-01-13 05:15] LABS: BASOPHILS 0.3 % (0.2-1.2); EOSINOPHILS 1.9 % (0.8-7.0); LYMPHOCYTES 74.7 % (21.8-53.1); MCH 31.6 PG (25.7-32.2); MCHC 32.2 g/dL (32.3-36.5); MCV 98.1 fL (79.0-92.2); MONOCYTES 4.3 % (5.3-12.2); NEUTROPHILS 18.4 % (34.0-67.9); RBC 2.66 M/uL (4.63-6.08)
[2025-01-13 05:38] LABS: ALT (SGPT) 22.0 U/L (14-59); AST (SGOT) 37.0 U/L (15-37); GLOMERULAR FILTRATION RATE,EST 28.0 mL/min (>60); PROTEIN, TOTAL 6.0 g/dL (6.4-8.2); UREA NITROGEN 38.0 mg/dL (7-18)
--- NOTE | 2025-01-13 07:45 | NUR ---
REPORT RECIVED FROM [facility] SHIFT RN. PATIENT RESTING IN BED. PATIENT HAS A BUSTOS CATHETER IN PLACE WITH YELLOW URINE, OCCASIONALLY BLOOD TINGED WITH SMALL CLOTS. NO ISSUES WITH OBSTRUCTIONS. PATIENT CALLS APPROPRIATELY. CALL LIGHT IN BED WITH PATIENT.
--- NOTE | 2025-01-13 08:30 | NUR ---
MD IN TO SEE PATIENT AND DISCUSS IMAGING FINDINGS WITH PATIENT FROM YESTERDAY. PATIENT CONTINUES TO DENY ANY FALLS OR HEAD INJURIES. PATIENT CONTINUES TO HAVE SPASTISITY OF MUSCLES AND DISCORDINATION WITH LEGS AND RIGHT ARM. PATIENT HAS IV FLUIDS INFUSING AND BUSTOS CATHETER PRESENT. CALL LIGHT IN REACH.
--- NOTE | 2025-01-13 08:53 | NUR ---
PATIENT IS ALERT AND ORIENTED. BED BATH AND BUSTOS CARE COMPLETE. PATIENT'S GOWN CHANGED AND A NEW BRIEF PUT ON. PATIENT WAS BOOSTED UP IN BED AND BREAKFAST TRAY WAS SET UP.
--- NOTE | 2025-01-13 09:15 | NUR ---
PATIENT ATTEMPTED TO SWALLOW POTASIUM PILLS AND GAGED ON PILL AND COUGHED BACKUP. PATIENT STATES HE HAS DIFFICULTY WITH HIS GAG REFLEX AND SWOLLOWING PILLS AT TIMES. WILL SEE IF POTASSIUM CAN BE CHANGED TO BE GIVEN PER GTUBE INSTEAD TO TO LIQUID WILL BURN MOUTH SORES THAT ARE PRESENT. MD WAS IN TO ADDRESS MERCEDES OF CARE WITH PATIENT AND HIS . ALL CONCERNS ADDRESSED. PATIENT IS UP TO THE CHAIR AT TOLERATING WELL. PATIENT WAS ABLE TO GET SOME OF HIS BREAKFAST THIS MORNING PO SO HAS DECLINED ANY TUBE FEEDS. PATIENT STATES HE HAS HAD POOR APPEITE BUT IS SLOWLY IMPROVING. PATIENT STATED HE WILL DRINK AN ENSURE THIS MORNING WELL. NO OTHER NEEDS AT THIS TIME. CALL LIGHT IN PLACE.
--- NOTE | 2025-01-13 09:30 | NUR ---
DIRECTOR GLOBAL STRATEGIC PUBLISHER SALES HAS BEEN IN TO ASSIT WITH CARES AND ASSIT PATIENT WITH BREAKFAST NEEDED. PATIENT TOELRATING WELL. BUSTOS DRAINGING WITH NO ISSUES. CALL LIGHT IN REACH.
--- NOTE | 2025-01-13 10:45 | NUR ---
RN IN TO CHECK ON PATIENT. PATIENT RSTING IN BED WATCHING TV. UPDATED PATIENT THAT PT/OT SHOULD BE IN TODAY TO WORK WITH PATIENT AND WE WILL PLAN TO HAVE HIM SIT IN THE CHAIR. PATIENT IS AGREEABLETO PLAN. PATIENTS STATE "IM GOING TO TAKE A LITTLE BREAK FROM EVERYTHING FOR A BIT UNTIL THEY GET HERE SO IM READY TO GO.
--- NOTE | 2025-01-13 12:55 | NUR ---
PATIENT CALLED TO HAVE BM. STAFF ASSISTED PATIENT ONTO BEDPAN. PATIENT ABLETO LIFT HIS HIPS AND ASSIST WITH GETTING ONTO BEDPAN. THIS IS BETTER MOVEMENT THAN HE HAS HAD PRIOR IN THE DAY. PATIENT FINISHED WITH LUNCH AND ABLE TO FEED HIMSELF WITH BUILTUP WEIGHTED UTENSILS THAT ARE PROVIDED. PATIENT IS CURRENTLY EATING WITH HIS NON-DOMINANT HAND D/T RIGHT HAND/ARM CORDINATION.
[2025-01-13] MEDS ORDERED: LACTATED RINGER'S 1,000 ML IV SCH (14:15)
--- NOTE | 2025-01-13 14:43 | NUR ---
THIS RN IN TO CHANGE PATIENTS ATTENDS AND PLACE NEW BEDDING. PATIENT REPOSITIONED AND PATIENT STATED HE NO LONGER HAS SENSATION IN HIS UPPER LEGS. PATIENT ALSO REPORTING NECK/SHOULDER SHOOTING PAIN. MD WINTERS. SEE NEW ORDERS. FAMILY UPDATED AT THE BEDSIDE. PER FAMILY THESE MOVMEMENTS ARE SOMETHING COMPLETELY DIFFERENT FROM HIS BASELINE.
--- NOTE | 2025-01-13 16:00 | NUR ---
MD IN TO DISCUSS IMAGING RESULTS WITH PATIENT. AND THIS RN. PATIENT VERY WITHDRAWN TO NEWS AND TRYING TO HOLD BACK TEARS. MD REVIEWED OPTIONS WITH PATIENT. PATIENT DENIES ANY OTHER QUESTIOSN AT THIS TIME. PATIENT OKAYED STAFF TO UPDATE FAMILY OF RESULTS.
--- NOTE | 2025-01-13 17:46 | NUR ---
PATIENT REPORTS HE DOES NOT WANT DINNER RIGHT NOW BUT WILL TAKE IT A LITTLE LATER. UPDATED PATIENT THAT HE WILL BE MOVING TO THE MEDICAL UNIT THIS EVENING. PATIENT AGREEABLE TO PLAN OF CARE.
--- NOTE | 2025-01-13 18:00 | NUR ---
REPORT GIVEN TO ABBEY DEL CID AND REVIEWED MUSCLE/RIGORS WITH RN. MD WILL PLACE ORDERS FOR LIDOCAIN AND A MUSCLE RELAXER IF POSSIBLE. MD TO REVIEW. PATIENT BELONGINGS SENT OVER TO ROOM 112. PATIENT BOOSTED IN BED AND DINNER SENT OVER FOR PATIENT TO EAT. I/O ACCOUNTED FOR.
[2025-01-13] MEDS ORDERED: LIDOCAINE HCL 4% 1 EACH PATCH TD SCH (18:02)
--- NOTE | 2025-01-13 20:54 | NUR ---
PATIENT LAYING IN BED. CATHETER CARE AND ORAL CARE WAS DONE. VITAL SIGNS AND I&0S DONE. PATIENT CALL LIGHT IS WITH REACH AND NO FURTHER NEEDS AT THIS TIME.
[2025-01-13] MEDS ORDERED: POLYETHYLENE GLYCOL 3350 1 PACKET PO SCH (21:00)
[2025-01-13] MEDS ORDERED: LIDOCAINE PATCH REMOVAL 1 EA TD SCH (21:00)
--- NOTE | 2025-01-13 22:42 | NUR ---
PATIENT CALLED TO GO TO THE BATHROOM. PATIENT WAS PLACED ON A BEDPAN. PATIENT STATED HE WOULD CALL WHEN HE WAS FINISHED. CALL LIGHT IS WITHIN REACH AND NO FURTHER NEEDS AT THIS TIME.
--- NOTE | 2025-01-13 23:21 | NUR ---
PATIENT WAS TAKEN OFF BEDPAN. PERICARE WAS DONE AND BRIEF WAS CHANGED. CALL LIGHT WITHIN REACH AND NO FURTHER NEEDS AT THIS TIME.
[2025-01-14] VITALS (11 sets, daily range): BP systolic 89–112; BP diastolic 58–81
--- NOTE | 2025-01-14 00:36 | NUR ---
PT CARED FOR T/O SHIFT, IV LR INFUSING TO R A/C AT 100ML/HR. LIDODERM PATCH APPLIED TO R SHOULDER AND PROVIDED ROBAXIN FOR MUSCLE SPASMS, PT RESTING AT THIS TIME WITH EYES CLOSED, POSITIONED WITH PILLOWS. F/C DRAINING BLOOD TINGED URINE. F/C PROVIDED BY HOME AIDE, NOTED MILKY DISCHARGE AT [facility]. SMALL SMEAR BM FOLLOWING MIRALAX. PT AGREEABLE TO SCD'S. PT USING PUSH BUTTON CALL CHAMBERLAIN, ABLE TO PUSH ON SIDERAILS. SIDERAILS UP X4. BED IN LOW POSITION AND LOCKED.
--- NOTE | 2025-01-14 01:00 | NUR ---
Pt report received from NEHEMIAS Baum. Pt is resting supine in bed with eyes closed, breathing is regular, even, and non-labored. Call light in reach, side rails up x4.
[2025-01-14 05:19] LABS: BASOPHILS 0.3 % (0.2-1.2); EOSINOPHILS 1.6 % (0.8-7.0); LYMPHOCYTES 75.3 % (21.8-53.1); MCH 31.2 PG (25.7-32.2); MCHC 32.2 g/dL (32.3-36.5); MCV 96.8 fL (79.0-92.2); MONOCYTES 3.8 % (5.3-12.2); NEUTROPHILS 18.4 % (34.0-67.9); RBC 2.85 M/uL (4.63-6.08)
--- NOTE | 2025-01-14 05:30 | NUR ---
PATIENT IS LAYING IN BED. VITAL SIGNS ANS I&OS WERE DONE.CALL LIGHT IS WITHIN REACH AND NO FURTHER NEEDS AT THIS TIME.
[2025-01-14 05:39] LABS: ALT (SGPT) 28.0 U/L (14-59); AST (SGOT) 42.0 U/L (15-37); GLOMERULAR FILTRATION RATE,EST 35.0 mL/min (>60); PROTEIN, TOTAL 5.9 g/dL (6.4-8.2); UREA NITROGEN 31.0 mg/dL (7-18)
--- NOTE | 2025-01-14 05:45 | NUR ---
In with pt and AIME Sears for renay care/diaper care after medium soft BM. Pt tolerated log rolling well.
--- NOTE | 2025-01-14 05:46 | NUR ---
Advised by charge gang weigherNEHEMIAS Weston that the lab called with a critical WBC value of 34.99. PC to Dr. Vance to update him on this lab value. No orders received.
--- NOTE | 2025-01-14 07:32 | NUR ---
PT RESTING IN BED WATCHING TV AT TIME OF SHIFT REPORT. AGREES HE IS COMFORTABLE. FRESH H20 TO BEDSIDE CALL LIGHT IN REACH.
[2025-01-14] MEDS ORDERED: LINEZOLID 600 MG TAB PO SCH (09:00)
--- NOTE | 2025-01-14 09:09 | NUR ---
PT EATS 100% OF MORNING MEAL. DENIES LIDOCAINE PATCH TO HIS BACK STATES "LATER IF IT STARTS HURTING" PT CONTINUES WATCHING TV WITHOUT REQUEST OR COMPLAINT.
--- NOTE | 2025-01-14 10:22 | NUR ---
PT RESTING EYES CLOSED, CALL LIGHT IN REACH
--- NOTE | 2025-01-14 10:46 | NUR ---
MEWS SCORE ELEVATED FOR LOW BP. PT IS NOT FAR OFF FROM BASELINE BP TAKEN AFTER PT AWAKENED FROM SLEEP RESTING IN BED UNDER THE COVERS. PT HAS NO S/S OF LOW BP NO ELEVATED HR OR OTHER INDICATOR OF ISSUE CONTINUE NORMAL MONITORING
--- NOTE | 2025-01-14 10:57 | NUR ---
DR RANGEL IN TO SEE PT. PLAN GOING FORWARD DISCUSSED AT LENGTH ALL QUESTIONS ANSWERED.
--- NOTE | 2025-01-14 11:12 | NUR ---
P/T IN TO WORK WITH PT.
--- NOTE | 2025-01-14 13:35 | NUR ---
PT RESTING IN BED HAS 5 VISITORS PRESENT DENIES NEEDS OF
--- NOTE | 2025-01-14 14:26 | NUR ---
CHECKED DIAPER FOR BM. COMPLETED BUSTOS CARE EARLIER IN DAY.
--- NOTE | 2025-01-14 14:33 | NUR ---
PT TOLERATES MOST OF NOON MEAL SITTING UPRIGHT IN BED. VISITS ACTIVELY WITH FAMILY AND FRIENDS UNTIL THEY LEAVE. PT RESTING EYES CLOSED AT THIS TIME
--- NOTE | 2025-01-14 15:28 | NUR ---
PT AWAKENS AFTER A SHORT NAP NEW VISITORS ARRIVE PT SITTING UPRIGHT IN BED.
--- NOTE | 2025-01-14 16:28 | NUR ---
PT USES CALL LIGHT APPROPRIATELY TO INDICATE NEED TO MOVE HIS BOWELS. INCONT OF STOOL. BED LINENS AND UNDERGARMENTS CHANGED PT REPOSITIONED IN BED FOR COMFORT
--- NOTE | 2025-01-14 18:44 | NUR ---
THIS BP WAS TAKEN TWICE - THIS SECOND BP WAS THE BETTER OF THE TWO.
--- NOTE | 2025-01-14 18:52 | NUR ---
PT BP IS SOFT THIS EVENING. REPORTED TO DR RANGEL.
[2025-01-14] MEDS ORDERED: LACTATED RINGER'S 1,000 ML IV ONE (19:00)
--- NOTE | 2025-01-14 20:10 | NUR ---
Patient awake, alert and oriented x3, no acute distress. Patient reports tolerable shoulder pain. Patient denies sob and or chest pain. IV fluid bolus started per order. Patient tachycardic 106bpm. Dr. Vance to bedside. Dr. Vance updated regarding increased heart rate, advised to non admin prn lopressor at this time. Patient attempting to have a bowel movement. Call light within reach.
--- NOTE | 2025-01-14 20:51 | NUR ---
IVF BOLUS COMPLETE. IVF INFUSING WNL ORDERED. CALL LIGHT AND PERSONAL SUPPLIES WITHIN REACH.
--- NOTE | 2025-01-14 22:05 | NUR ---
PATIENT CALLED. PATIENT IS OFF OF THE BED DAMON AND HAD LARGE SOFT BM. WHOLE BED LINEN CHANGED AFTER CLEANING AND DID WILLIAM AND BUSTOS CARE. FRESH GOWN, CHUX AND ATTENDS PLACED. BED ALARM ON FOR SAFETY.
[2025-01-15] VITALS (8 sets, daily range): BP systolic 88–120; BP diastolic 42–67
--- NOTE | 2025-01-15 00:02 | NUR ---
report from beltran jarquin. pt resting hr 80's
[2025-01-15 05:18] LABS: BASOPHILS 0.2 % (0.2-1.2); EOSINOPHILS 1.9 % (0.8-7.0); LYMPHOCYTES 76.5 % (21.8-53.1); MCH 31.0 PG (25.7-32.2); MCHC 32.2 g/dL (32.3-36.5); MCV 96.3 fL (79.0-92.2); MONOCYTES 3.9 % (5.3-12.2); NEUTROPHILS 16.8 % (34.0-67.9); RBC 2.94 M/uL (4.63-6.08)
[2025-01-15 05:28] LABS: GLOMERULAR FILTRATION RATE,EST 47.0 mL/min (>60); UREA NITROGEN 31.0 mg/dL (7-18)
--- NOTE | 2025-01-15 05:50 | NUR ---
see emar - pt given po norco for left arm pain 09/28 - pt eating icecream and reports he thinks arm is better - noted redness at line on left arm with wound covered.
--- NOTE | 2025-01-15 07:26 | NUR ---
pt resting eyes closed at time of shift report. call light in reach fresh h20 to bedside.
--- NOTE | 2025-01-15 09:05 | NUR ---
PT SELF FEEDS MORNING MEAL WITH SPECIALIZED UNTENSILS WELL TOLERATED. PT SITTING UP WATCHING TV. HE IS MORE INTERACTIVE TODAY APPEARING LESS DEPRESSED THAN YESTERDAY TALKING JOKING ASKING QUESTIONS. PT DENIES NEEDS AT THIS TIME
--- NOTE | 2025-01-15 10:44 | NUR ---
PT CONTINUES RESTING IN BED WATCHING TV DENIES NEEDS. CALL LIGHT AND NEEDED ITEMS IN REACH
--- NOTE | 2025-01-15 10:52 | NUR ---
PT TO MRI
--- NOTE | 2025-01-15 12:39 | NUR ---
PT BACK FROM MRI STATES HE WISHED HE'D OF TAKEN TYLENOL OFFERED EARLIER. PT TAKES IT NOW. SITTING UP IN BED WITH NOON MEAL SELF FEEDING. PT DENIES OTHER NEEDS AT THIS TIME
--- NOTE | 2025-01-15 13:40 | NUR ---
HOURLY ROUNDING PATIENT LAYING IN BED, VISTING WITH HIS SISTER IN LAW. NO REQUEST FROM PATIENT AT THIS TIME
--- NOTE | 2025-01-15 13:58 | NUR ---
DR RANGEL IN TO SEE PT AND DISCUSS MRI RESULTS AND NEED FOR TRANSPORT TO HIGHER LEVEL OF CARE. SISTER IN LAW IS PRESENT ALL QUESTIONS ANSWERED AND PT AGREEABLE TO TRANSFER
[2025-01-15] MEDS ORDERED: DEXAMETHASONE SOD PHOS 10 MG/ML VIAL IV ONE (14:15)
--- NOTE | 2025-01-15 14:38 | NUR ---
INTO SEE PATIENT. SISTER IN LAW AT BEDSIDE. 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 [employer], [facility] [employer]. PATIENT IS PENDING TRANSFER TO A HIGHER LEVEL OF CARE.
--- NOTE | 2025-01-15 14:47 | NUR ---
DR RANGEL IN TO SEE PT AGAIN TO CLARIFY PT WISHES FOR TREATMENT.
--- NOTE | 2025-01-15 15:20 | NUR ---
REPORT CALLED TO MAIA Piña [facility] FOR PT TRANSPORT.
--- NOTE | 2025-01-15 17:00 | NUR ---
PT FAMILY (NESA) STATES SHE WILL COME FOR PT PERSONAL BELONGINGS PER HIS PREFRENCE. 2 BAGS MARKED WITH HIS NAME AT RN STATION. PT LOADED ON AMBULANCE GURNEY PRESSURE RELIEF MATTRESS ADDED FOR COMFORT. CONFIRMED WITH AMBULANCE STAFF REPORT HAD BEEN CALLED TO MAIA AT [facility]
[2025-01-16] MEDS ORDERED: DEXAMETHASONE SOD PHOS 10 MG/ML VIAL PO SCH (09:00)
== END 2025-01-15 17:00 | disposition short-term general hospital (02) | DRG 682 ==
LOC: ED 16:32 → MS 01-10 00:46 → CCU 01-10 00:46 → MS 01-11 16:19 → CCU 01-12 00:48 → MS 01-13 17:25
PROVIDERS: Emergency Medicine; Family Medicine; ADMIT Family Medicine; ATTEND Student in an Organized Health Care Education/Training Program
PROC: 0T9B70Z Drainage of Bladder with Drainage Device, Via Natural or Artificial Opening (ICD-10-PCS; principal; 2025-01-09)
PROC: 3E03329 Introduction of Other Anti-infective into Peripheral Vein, Percutaneous Approach (ICD-10-PCS; 2025-01-09)
DX: N17.9 Acute kidney failure, unspecified (principal); I62.00 Nontraumatic subdural hemorrhage, unspecified; G95.29 Other cord compression; I24.89 Other forms of acute ischemic heart disease; N39.0 Urinary tract infection, site not specified; C79.51 Secondary malignant neoplasm of bone; Z16.24 Resistance to multiple antibiotics; C95.90 Leukemia, unspecified not having achieved remission; N13.8 Other obstructive and reflux uropathy; Z66 Do not resuscitate; R15.9 Full incontinence of feces; R33.8 Other retention of urine; B95.7 Other staphylococcus as the cause of diseases classified elsewhere; C61 Malignant neoplasm of prostate; E87.5 Hyperkalemia; R19.7 Diarrhea, unspecified; R79.89 Other specified abnormal findings of blood chemistry; N40.1 Benign prostatic hyperplasia with lower urinary tract symptoms; G25.0 Essential tremor; E83.39 Other disorders of phosphorus metabolism; I48.91 Unspecified atrial fibrillation; E83.42 Hypomagnesemia; Z86.718 Personal history of other venous thrombosis and embolism
CPT/HCPCS: 36415; 36592; 51702; 51798; 70450; 70551; 71045; 72125; 72128; 72157; 72158; 80048; 80053; 81001; 82803; 83735; 83880; 84100; 84484; 85025; 85060; 87077; 87088; 87186; 93005; 93010; 94644; 96361; 96365; 96375; 97110; 97163; 97166; 97530; 97535; 99285-25; A4311; A9270; A9573; J0612; J0696; J1100; J1650; J1815; J3475; J7030; J7070; J7121